=== PATIENT | male | born 1980 | race Asian ===

== ENCOUNTER 2017-12-24 11:21 | Outpatient (CLI) | payer OTHER | END 2017-12-24 11:22 | disposition home or self-care (01) | LOC: SC 11:21 | PROVIDERS: ATTEND Internal Medicine Pulmonary Disease | DX: G47.33 Obstructive sleep apnea (adult) (pediatric) (principal) | CPT/HCPCS: 99203; 99212 ==

== ENCOUNTER 2018-02-09 19:14 | Outpatient (CLI) | payer OTHER | END 2018-02-09 19:15 | disposition home or self-care (01) | LOC: SC 19:14 | PROVIDERS: ATTEND Internal Medicine Pulmonary Disease | DX: G47.33 Obstructive sleep apnea (adult) (pediatric) (principal); G47.61 Periodic limb movement disorder | CPT/HCPCS: 95810 ==

== ENCOUNTER 2018-03-13 09:04 | Outpatient (CLI) | payer OTHER | END 2018-03-13 09:05 | disposition home or self-care (01) | LOC: SC 09:04 | PROVIDERS: ATTEND Nurse Practitioner Family | DX: G47.33 Obstructive sleep apnea (adult) (pediatric) (principal) | CPT/HCPCS: 99212; 99214 ==

== ENCOUNTER 2019-05-13 09:06 | Outpatient (CLI) | payer OTHER | END 2019-05-13 09:07 | disposition home or self-care (01) | LOC: SC 09:06 | PROVIDERS: ATTEND Nurse Practitioner Family | DX: G47.33 Obstructive sleep apnea (adult) (pediatric) (principal) | CPT/HCPCS: 99212; 99215 ==

== ENCOUNTER 2019-06-05 20:10 | Outpatient (CLI) | payer OTHER | END 2019-06-05 20:11 | disposition home or self-care (01) | LOC: SC 20:10 | PROVIDERS: ATTEND Internal Medicine Pulmonary Disease | DX: G47.33 Obstructive sleep apnea (adult) (pediatric) (principal); G47.61 Periodic limb movement disorder | CPT/HCPCS: 95810 ==

== ENCOUNTER 2019-12-25 18:54 | Outpatient (CLI) | payer OTHER | END 2019-12-25 18:55 | disposition EMS.NT | LOC: EMS 18:54 | PROVIDERS: ATTEND Surgery | DX: K92.1 Melena (principal) ==

== ENCOUNTER 2019-12-25 19:49 | Emergency (ER) | payer OTHER ==
[2019-12-25] MEDS ORDERED: LORazepam 2 MG/ML VIAL IVP STA (20:09)
[2019-12-25] MEDS ORDERED: FOLIC ACID INJ 1 MG, THIAMINE INJ 100 MG, MAGNESIUM SULFATE 2 GM, MULTIVITAMIN 10 ML in... IV STA ×5 (20:16)
[2019-12-25 20:26] LABS: BASOPHILS # (AUTO) 0.1 10^3/uL (0.0-0.1); BASOPHILS % (AUTO) 0.7 %; EOSINOPHILS # (AUTO) 0.3 10^3/uL (0.0-0.7); EOSINOPHILS % (AUTO) 2.3 %; HGB - HEMOGLOBIN 13.1 g/dL (14.0-18.0); LYMPHOCYTES # (AUTO) 3.2 10^3/uL (1.5-3.5); LYMPHOCYTES % (AUTO) 24.3 %; MEAN CORPUSCULAR HEMOGLOBIN 29.7 pg (27.0-31.0); MEAN CORPUSCULAR HGB CONC 34.5 g/dL (32.0-36.0); MEAN CORPUSCULAR VOLUME 86.2 fL (80.0-94.0); MEAN PLATELET VOLUME 9.6 fL (7.4-11.4); MONOCYTES # (AUTO) 1.6 10^3/uL (0.0-1.0); MONOCYTES % (AUTO) 12.1 %; NEUTROPHILS # (AUTO) 7.9 10^3/uL (1.5-6.6); NEUTROPHILS % (AUTO) 60.1 %; PLT - PLATELET COUNT 189 10^3/uL (130-450); RED BLOOD COUNT 4.41 10^6/uL (4.70-6.10); RED CELL DISTRIBUTION WIDTH 16.7 % (12.0-15.0); WHITE BLOOD COUNT 13.1 x10^3/uL (4.8-10.8)
[2019-12-25] MEDS ORDERED: LORazepam 2 MG/ML VIAL ONE (20:28)
[2019-12-25 20:31] LABS: INR 1.5 (0.8-1.2); PT - PROTHROMBIN TIME 16.7 secs (9.9-12.6)
[2019-12-25 20:38] LABS: PARTIAL THROMBOPLASTIN TIME 42.3 secs (24.9-33.3)
[2019-12-25 20:44] LABS: ACETAMINOPHEN < 10 ug/mL (10-30); ALBUMIN 3.3 g/dL (3.2-5.5); ALBUMIN/GLOBULIN RATIO 0.9 (1.0-2.2); ALKALINE PHOSPHATASE 149 IU/L (42-121); ALT ALANINE AMINOTRANSFERASE 60 IU/L (10-60); AST ASPARTATE AMINOTRANSFERASE 108 IU/L (10-42); BILIRUBIN,DIRECT 1.1 mg/dL (0.1-0.5); BILIRUBIN,TOTAL 2.4 mg/dL (0.2-1.0); BUN - BLOOD UREA NITROGEN 6 mg/dL (6-20); CALCIUM 8.1 mg/dL (8.5-10.3); CARBON DIOXIDE - CO2 30 mmol/L (21-32); CHLORIDE 99 mmol/L (101-111); CREATININE 0.8 mg/dL (0.6-1.2); GFR - MDRD 108 (>89); GLUCOSE 121 mg/dL (70-100); LIPASE 127 U/L (22-51); MAGNESIUM 2.1 mg/dL (1.7-2.8); PHOSPHORUS 3.9 mg/dL (2.5-4.6); SALICYLATE < 6.0 mg/dL; SODIUM 141 mmol/L (135-145); TOTAL PROTEIN 7.1 g/dL (6.7-8.2)
[2019-12-25 20:48] LABS: CK- CREATINE KINASE 1079 IU/L (22-269)
[2019-12-25] MEDS ORDERED: SODIUM CHLORIDE 0.9% 1,000 ML IV ONE (20:51)
[2019-12-25] MEDS ORDERED: PANTOPRAZOLE 40 MG VIAL IV STA (20:54)
[2019-12-25] MEDS ORDERED: THIAMINE 100 MG/1 ML 2 ML MDV ONE (20:55)
--- NOTE | 2019-12-25 21:49 | ED Physician Documentation ---
History of Present Illness - Stated complaint Stated Complaint: HBD - Chief complaint Chief Complaint: Abd Pain - History obtained from History obtained from: Patient, Family (the history is primarily obtained from the patient's . the patient is a 39 Y/O M who is currently being separted from the [facility] for alcohol abuse. The reports he has been drinking 4 LOKOs daily for the last 3 days and noticed that he had some blood in the toilet tonight and had the patient brought in by ems. the denies any toxic alcohol ingestion or coingestions.), EMS Review of Systems Unable to obtain: Intoxicated PD PAST MEDICAL HISTORY - Past Medical History Past Medical History: Yes Cardiovascular: Hypertension GI: Cirrhosis - Past Surgical History Past Surgical History: No - Present Medications Home Medications: Ambulatory Orders Medication Instructions Recorded Confirmed Disulfiram [Antabuse] 250 mg PO 12/25/19 FLUoxetine [PROzac] 20 mg PO DAILY 12/25/19 12/25/19 Losartan Potassium 25 mg PO 12/25/19 Naltrexone HCl 50 mg PO 12/25/19 - Allergies Allergies/Adverse Reactions: Allergies Allergy/AdvReac Type Severity Reaction Status Date / Time No Known Drug Allergies Allergy Verified 12/25/19 20:24 - Social History Does the pt smoke?: Yes Smoking Status: Current every day smoker Does the pt drink ETOH?: Yes ETOH Use: Beer Does the pt have substance abuse?: No - POLST Patient has POLST: No PD ED PE NORMAL - Vitals Vital signs reviewed: Yes - General General: No acute distress, Well developed/nourished, Other (intoxicated, smells of alcohol, protecting airway.) - HEENT HEENT: PERRL, EOMI, Ears normal, Moist mucous membranes, Pharynx benign, Other (small 2x2 cm hematoma to the left parietal region) - Neck Neck: Supple, no meningeal sign, No JVD, No bruit - Cardiac Cardiac: RRR, No murmur, Strong equal pulses - Respiratory Respiratory: No respiratory distress, Clear bilaterally - Abdomen Abdomen: Normal bowel sounds, Soft, Non tender, Non distended, Other (no midline abd pulsatile mass) - Rectal Rectal: Other (no gross blood on exam, hemoccult pending) - Derm Derm: Normal color, Warm and dry, No rash - Extremities Extremities: No deformity - Neuro Neuro: Other (clinically intoxicated, no facial droop, no unilateral weakness) - Psych Psych: Normal mood, Normal affect Results - Vitals Vitals: Vital Signs - 24 hr 12/25/19 12/25/19 12/25/19 19:54 20:49 21:31 Temperature 36.8 C Heart Rate 95 77 Respiratory 20 14 Rate Blood Pressure 149/94 H 157/90 H O2 Saturation 99 89 L 99 12/25/19 12/26/19 12/26/19 23:00 00:00 01:17 Temperature Heart Rate 96 94 92 Respiratory 16 14 14 Rate Blood Pressure 126/82 H 137/85 H 142/89 H O2 Saturation 94 98 96 12/26/19 12/26/19 12/26/19 02:44 04:00 05:00 Temperature Heart Rate 94 73 75 Respiratory 14 14 16 Rate Blood Pressure 132/80 H 140/96 H 167/99 H O2 Saturation 96 99 96 Oxygen O2 Source Nasal cannula - Labs Labs: Laboratory Tests 12/25/19 12/25/19 12/25/19 20:18 20:18 20:18 WBC 13.1 H RBC 4.41 L Hgb 13.1 L Hct 38.0 L MCV 86.2 MCH 29.7 MCHC 34.5 RDW 16.7 H Plt Count 189 MPV 9.6 Neut # (Auto) 7.9 H Lymph # (Auto) 3.2 [place] # (Auto) 1.6 H Eos # (Auto) 0.3 Baso # (Auto) 0.1 Absolute Nucleated RBC 0.00 Nucleated RBC % 0.0 PT 16.7 H INR 1.5 H APTT 42.3 H Sodium 141 Potassium 2.9 L Chloride 99 L Carbon Dioxide 30 Anion Gap 12.0 BUN 6 Creatinine 0.8 Estimated GFR (MDRD) 108 Glucose 121 H Calcium 8.1 L Phosphorus 3.9 Magnesium 2.1 Total Bilirubin 2.4 H Direct Bilirubin 1.1 H AST 108 H ALT 60 Alkaline Phosphatase 149 H Ammonia Total Creatine Kinase 1079 H* Total Protein 7.1 Albumin 3.3 Globulin 3.8 Albumin/Globulin Ratio 0.9 L Lipase 127 H TSH Urine Color Urine Clarity Urine pH Ur Specific [place] Urine Protein Urine Glucose (UA) Urine Ketones Urine Occult Blood Urine Nitrite Urine Bilirubin Urine Urobilinogen Ur Leukocyte Esterase Ur Microscopic Review Urine Culture Comments Salicylates < 6.0 Urine Opiates Screen Ur Oxycodone Screen Urine Methadone Screen Ur Propoxyphene Screen Acetaminophen < 10 L Ur Barbiturates Screen Ur Tricyclics Screen Ur Phencyclidine Scrn Ur Amphetamine Screen U Methamphetamines Scrn U Benzodiazepines Scrn Urine Cocaine Screen U Cannabinoids Screen Ethyl Alcohol 320.9 12/25/19 12/25/19 12/26/19 20:18 20:27 01:10 WBC RBC Hgb Hct MCV MCH MCHC RDW Plt Count MPV Neut # (Auto) Lymph # (Auto) [place] # (Auto) Eos # (Auto) Baso # (Auto) Absolute Nucleated RBC Nucleated RBC % PT INR APTT Sodium Potassium Chloride Carbon Dioxide Anion Gap BUN Creatinine Estimated GFR (MDRD) Glucose Calcium Phosphorus Magnesium Total Bilirubin Direct Bilirubin AST ALT Alkaline Phosphatase Ammonia 45.5 H Total Creatine Kinase Total Protein Albumin Globulin Albumin/Globulin Ratio Lipase TSH 1.91 Urine Color YELLOW Urine Clarity CLEAR Urine pH 6.0 Ur Specific [place] 1.010 Urine Protein NEGATIVE Urine Glucose (UA) NEGATIVE Urine Ketones NEGATIVE Urine Occult Blood NEGATIVE Urine Nitrite NEGATIVE Urine Bilirubin NEGATIVE Urine Urobilinogen 1 (NORMAL) Ur Leukocyte Esterase NEGATIVE Ur Microscopic Review NOT INDICATED Urine Culture Comments NOT INDICATED Salicylates Urine Opiates Screen NEGATIVE Ur Oxycodone Screen NEGATIVE Urine Methadone Screen NEGATIVE Ur Propoxyphene Screen NEGATIVE Acetaminophen Ur Barbiturates Screen NEGATIVE Ur Tricyclics Screen NEGATIVE Ur Phencyclidine Scrn NEGATIVE Ur Amphetamine Screen NEGATIVE U Methamphetamines Scrn NEGATIVE U Benzodiazepines Scrn POSITIVE H Urine Cocaine Screen NEGATIVE U Cannabinoids Screen NEGATIVE Ethyl Alcohol PD MEDICAL DECISION MAKING - ED course Complexity details: re-evaluated patient (05:26 patient with steady gait, clear speech, tolerated po challenge, awake,alert,oriented. ), d/w family (had a lengthy discussion with the patient's regarding plan for the patient. will contact the patient's correctional case records supervisor to schedule outpatient follow up. If patient returns a potential option would be to stabilize and transfer to [facility] for inpatient detox. ), other (hx and exam are consistent with alcohol intoxication, unsure if patient fell and hit his head, will get CTH to rule out IC injury. thiamine and folate to be replaced.) - Consults Consults: Discussed case with (hospitalist. Keep in ER and dc home when sober. ) Departure - Departure Disposition: 01 Home, Self Care Clinical Impression: Hypokalemia, Elevated CK, ETOH abuse Alcohol intoxication Qualifiers: Complication of substance-induced condition: with unspecified complication Qualified Code(s): F10.929 - Alcohol use, unspecified with intoxication, unspecified Condition: Fair Instructions: ED Alcohol Intoxication Follow-Up: OMAR BRYAN MD [Primary Care Provider] - 12/26/19 Comments: follow up at [facility] yassine or your PCP today.
--- NOTE | 2019-12-25 22:00 | CT Report ---
Reason: AMS Procedure Date: 12/25/2019 Accession Number: [id number] / [id number] Procedure: CT - HEAD WO CPT Code: Final Report FULL RESULT: EXAM: CT HEAD EXAM DATE: 12/25/2019 09:16 PM. CLINICAL HISTORY: Altered mental status. Has been drinking for the past 3 days. Bloody stool. COMPARISON: None. TECHNIQUE: Multiaxial CT images were obtained from the foramen magnum to the vertex. Reformats: Sagittal and coronal. IV contrast: None. In accordance with CT protocol optimization, one or more of the following dose reduction techniques were utilized for this exam: automated exposure control, adjustment of mA and/or KV based on patient size, or use of iterative reconstructive technique. FINDINGS: Parenchyma: No mass-effect or midline shift. No evidence for edema. No evidence for acute intracranial hemorrhage. Extraaxial Spaces: Normal for age. No subdural or epidural collections identified. Ventricles: Normal in size and position. Sinuses and Orbits: Imaged paranasal sinuses, orbits, and mastoids show no significant abnormality. Bones: No evidence of fracture or calvarial defect. IMPRESSION: No acute or focal intracranial abnormality seen. RADIA
[2019-12-25] MEDS ORDERED: POTASSIUM CHLOR 20 MEQ/100 ML 20 MEQ/100 ML BAG IV ONE (23:36)
[2019-12-26] MEDS ORDERED: LORazepam 2 MG/ML VIAL IVP STA (01:11)
[2019-12-26 01:19] LABS: MUDS CUTOFF CONCENTRATIONS CUTOFF CONC BELOW:
[2019-12-26 01:20] LABS: BILIRUBIN,URINE NEGATIVE (NEGATIVE); GLUCOSE, URINE (UA) NEGATIVE (NEGATIVE); KETONES,URINE (UA) NEGATIVE (NEGATIVE); LEUKOCYTE ESTERASE, URINE NEGATIVE (NEGATIVE); NITRITE,URINE NEGATIVE (NEGATIVE); OCCULT BLOOD,URINE NEGATIVE (NEGATIVE); PROTEIN,URINE NEGATIVE (NEGATIVE); UROBILINOGEN,URINE 1 (NORMAL) E.U./dL (NORMAL)
[2019-12-26 01:21] LABS: CLARITY,URINE CLEAR (CLEAR)
[2019-12-26 01:30] LABS: AMPHETAMINE SCREEN,URINE NEGATIVE (NEGATIVE); BENZODIAZEPINES SCREEN, URINE POSITIVE (NEGATIVE); COCAINE SCREEN URINE NEGATIVE (NEGATIVE); METHADONE SCREEN, URINE NEGATIVE (NEGATIVE); METHAMPHETAMINES SCREEN, URINE NEGATIVE (NEGATIVE); OPIATE SCREEN, URINE NEGATIVE (NEGATIVE); OXYCODONE SCREEN, URINE NEGATIVE (NEGATIVE); PROPOXYPHENE SCREEN, URINE NEGATIVE (NEGATIVE); TRICYCLIC ANTIDEPRESSANT,URINE NEGATIVE (NEGATIVE)
[2019-12-26 05:09] VITALS: BP 167/99
== END 2019-12-26 05:39 | disposition home or self-care (01) ==
LOC: EDUNIT# → ED 19:49
DX: F10.129 Alcohol abuse with intoxication, unspecified (principal); E87.6 Hypokalemia; R74.8 Abnormal levels of other serum enzymes; S00.03XA Contusion of scalp, initial encounter; X58.XXXA Exposure to other specified factors, initial encounter; I10 Essential (primary) hypertension; K74.60 Unspecified cirrhosis of liver; F17.200 Nicotine dependence, unspecified, uncomplicated
CPT/HCPCS: 36415; 70450; 80076; 80320; 80329; 81003; 82140; 82550; 83690; 83735; 84100; 85610; 85730; 96365; 96366; 96368; 96375; 96376; 99281; 99285; J2060; J3411; 80053; 80306; 80307; 81001; 84443; 85025; 87086

== ENCOUNTER 2019-12-26 08:51 | Emergency (ER) | payer OTHER ==
[2019-12-26] MEDS ORDERED: SODIUM CHLORIDE 0.9% 1,000 ML IV ONE ×2 (09:00)
--- NOTE | 2019-12-26 09:03 | ED Physician Documentation ---
History of Present Illness - Stated complaint Stated Complaint: SI - History obtained from History obtained from: Patient, EMS - History of Present Illness Timing: Today Pain level max: 0 Pain level now: 0 - Additonal information Additional information: 39-year-old male presents to the emergency department stating that he feels hopeless. He has issues with alcohol and is currently being from the [facility] for this. He was seen here last night for alcohol intoxication. His took him home this morning. When they arrived home, he started talking about how his and his children would be better off without him. The feels that he was suicidal and called 911. The patient states that he is not suicidal, but is helpless. He does see psychiatry on the [facility] base. He states that approximately 3 months ago he did attempt suicide with Flexeril and Seroquel, attempted an overdose. He states he does not currently feel suicidal. Nothing makes it better or worse Review of Systems Ten Systems: 10 systems reviewed and negative Constitutional: denies: Fever, Chills Throat: denies: Sore throat Cardiac: denies: Chest pain / pressure Respiratory: denies: Cough GI: denies: Abdominal Pain, Nausea, Vomiting, Diarrhea : denies: Dysuria Skin: denies: Rash Musculoskeletal: denies: Neck pain, Back pain Neurologic: denies: Headache Psychiatric: reports: Depressed. denies: Homicidal, Hallucinations, Delusions, Anxiety, Insomnia PD PAST MEDICAL HISTORY - Past Medical History Past Medical History: Yes Cardiovascular: Hypertension GI: Cirrhosis - Past Surgical History Past Surgical History: No - Present Medications Home Medications: Ambulatory Orders Medication Instructions Recorded Confirmed Disulfiram [Antabuse] 250 mg PO 12/25/19 FLUoxetine [PROzac] 20 mg PO DAILY 12/25/19 12/25/19 Losartan Potassium 25 mg PO 12/25/19 Naltrexone HCl 50 mg PO 12/25/19 - Allergies Allergies/Adverse Reactions: Allergies Allergy/AdvReac Type Severity Reaction Status Date / Time No Known Drug Allergies Allergy Verified 12/26/19 09:03 - Social History Does the pt smoke?: Yes Smoking Status: Current every day smoker Does the pt drink ETOH?: Yes Does the pt have substance abuse?: No - POLST Patient has POLST: No PD ED PE NORMAL - Vitals Vital signs reviewed: Yes - General General: Alert and oriented X 3, No acute distress, Well developed/nourished - HEENT HEENT: PERRL, Moist mucous membranes - Neck Neck: Supple, no meningeal sign - Cardiac Cardiac: RRR, Strong equal pulses - Respiratory Respiratory: No respiratory distress, Clear bilaterally - Abdomen Abdomen: Soft, Non tender, Non distended - Derm Derm: Warm and dry, No rash - Extremities Extremities: No edema, No calf tenderness / cord - Neuro Neuro: Alert and oriented X 3 - Psych Psych: Normal mood, Normal affect Results - Vitals Vitals: Vital Signs - 24 hr 12/26/19 12/26/19 08:55 12:55 Temperature 36.9 C Heart Rate 101 H 99 Respiratory 20 18 Rate Blood Pressure 146/93 H 165/105 H O2 Saturation 97 96 Oxygen O2 Source Room air - EKG (time done) 0907 Rate: Rate (enter#) (91) Rhythm: NSR [place]: Normal Intervals: Normal CO, Prolonged QT (485) QRS: Normal Ischemia: Normal ST segments - Labs Labs: Laboratory Tests 12/26/19 12/26/19 12/26/19 09:05 09:05 09:05 WBC 8.5 RBC 4.43 L Hgb 13.0 L Hct 38.7 L MCV 87.4 MCH 29.3 MCHC 33.6 RDW 16.8 H Plt Count 167 MPV 9.5 Neut # (Auto) 5.1 Lymph # (Auto) 2.0 [place] # (Auto) 1.1 H Eos # (Auto) 0.2 Baso # (Auto) 0.1 Absolute Nucleated RBC 0.00 Nucleated RBC % 0.0 Sodium 143 Potassium 3.3 L Chloride 104 Carbon Dioxide 27 Anion Gap 12.0 BUN 7 Creatinine 0.7 Estimated GFR (MDRD) 126 Glucose 169 H Calcium 8.1 L Total Bilirubin 3.6 H AST 111 H ALT 59 Alkaline Phosphatase 128 H Total Creatine Kinase 1051 H* Total Protein 6.7 Albumin 3.3 Globulin 3.4 Albumin/Globulin Ratio 1.0 Lipase 99 H TSH 1.37 Urine Color Urine Clarity Urine pH Ur Specific [place] Urine Protein Urine Glucose (UA) Urine Ketones Urine Occult Blood Urine Nitrite Urine Bilirubin Urine Urobilinogen Ur Leukocyte Esterase Ur Microscopic Review Urine Culture Comments Salicylates < 6.0 Urine Opiates Screen Ur Oxycodone Screen Urine Methadone Screen Ur Propoxyphene Screen Acetaminophen < 10 L Ur Barbiturates Screen Ur Tricyclics Screen Ur Phencyclidine Scrn Ur Amphetamine Screen U Methamphetamines Scrn U Benzodiazepines Scrn Urine Cocaine Screen U Cannabinoids Screen Ethyl Alcohol 184.7 12/26/19 12/26/19 12/26/19 11:45 12:51 15:59 WBC RBC Hgb Hct MCV MCH MCHC RDW Plt Count MPV Neut # (Auto) Lymph # (Auto) [place] # (Auto) Eos # (Auto) Baso # (Auto) Absolute Nucleated RBC Nucleated RBC % Sodium Potassium Chloride Carbon Dioxide Anion Gap BUN Creatinine Estimated GFR (MDRD) Glucose Calcium Total Bilirubin AST ALT Alkaline Phosphatase Total Creatine Kinase Total Protein Albumin Globulin Albumin/Globulin Ratio Lipase TSH Urine Color DARK YELLOW Urine Clarity CLEAR Urine pH 6.0 Ur Specific [place] 1.025 Urine Protein NEGATIVE Urine Glucose (UA) NEGATIVE Urine Ketones NEGATIVE Urine Occult Blood NEGATIVE Urine Nitrite NEGATIVE Urine Bilirubin SMALL H Urine Urobilinogen 4 H Ur Leukocyte Esterase NEGATIVE Ur Microscopic Review NOT INDICATED Urine Culture Comments NOT INDICATED Salicylates Urine Opiates Screen NEGATIVE Ur Oxycodone Screen NEGATIVE Urine Methadone Screen NEGATIVE Ur Propoxyphene Screen NEGATIVE Acetaminophen Ur Barbiturates Screen NEGATIVE Ur Tricyclics Screen NEGATIVE Ur Phencyclidine Scrn NEGATIVE Ur Amphetamine Screen NEGATIVE U Methamphetamines Scrn NEGATIVE U Benzodiazepines Scrn POSITIVE H Urine Cocaine Screen NEGATIVE U Cannabinoids Screen NEGATIVE Ethyl Alcohol 134.8 108.3 12/26/19 17:41 WBC RBC Hgb Hct MCV MCH MCHC RDW Plt Count MPV Neut # (Auto) Lymph # (Auto) [place] # (Auto) Eos # (Auto) Baso # (Auto) Absolute Nucleated RBC Nucleated RBC % Sodium Potassium Chloride Carbon Dioxide Anion Gap BUN Creatinine Estimated GFR (MDRD) Glucose Calcium Total Bilirubin AST ALT Alkaline Phosphatase Total Creatine Kinase Total Protein Albumin Globulin Albumin/Globulin Ratio Lipase TSH Urine Color Urine Clarity Urine pH Ur Specific [place] Urine Protein Urine Glucose (UA) Urine Ketones Urine Occult Blood Urine Nitrite Urine Bilirubin Urine Urobilinogen Ur Leukocyte Esterase Ur Microscopic Review Urine Culture Comments Salicylates Urine Opiates Screen Ur Oxycodone Screen Urine Methadone Screen Ur Propoxyphene Screen Acetaminophen Ur Barbiturates Screen Ur Tricyclics Screen Ur Phencyclidine Scrn Ur Amphetamine Screen U Methamphetamines Scrn U Benzodiazepines Scrn Urine Cocaine Screen U Cannabinoids Screen Ethyl Alcohol 93.1 PD MEDICAL DECISION MAKING - ED course Complexity details: reviewed results, re-evaluated patient, considered differential, d/w patient ED course: The CK is stable from last night's elevation. Given IV fluids. He also has a mild what appears to be alcoholic hepatitis. Patient needs a detox from alcohol as well as mental health help for his alcoholism and suicidal ideation. Social work consulted. Patient would benefit from inpatient psychiatric care. [facility] was contacted for possible bed. Clinicals were faxed. Patient signed out to the oncoming emergency department physician Departure - Departure Clinical Impression: ETOH abuse, Elevated CK, Suicidal ideation Alcohol intoxication Qualifiers: Complication of substance-induced condition: uncomplicated Qualified Code(s): F10.920 - Alcohol use, unspecified with intoxication, uncomplicated Condition: Stable
[2019-12-26 09:14] LABS: BASOPHILS # (AUTO) 0.1 10^3/uL (0.0-0.1); BASOPHILS % (AUTO) 1.1 %; EOSINOPHILS # (AUTO) 0.2 10^3/uL (0.0-0.7); EOSINOPHILS % (AUTO) 2.4 %; LYMPHOCYTES % (AUTO) 23.4 %; MEAN CORPUSCULAR HEMOGLOBIN 29.3 pg (27.0-31.0); MEAN CORPUSCULAR HGB CONC 33.6 g/dL (32.0-36.0); MEAN CORPUSCULAR VOLUME 87.4 fL (80.0-94.0); MEAN PLATELET VOLUME 9.5 fL (7.4-11.4); MONOCYTES # (AUTO) 1.1 10^3/uL (0.0-1.0); MONOCYTES % (AUTO) 12.4 %; NEUTROPHILS # (AUTO) 5.1 10^3/uL (1.5-6.6); NEUTROPHILS % (AUTO) 60.3 %; PLT - PLATELET COUNT 167 10^3/uL (130-450); RED BLOOD COUNT 4.43 10^6/uL (4.70-6.10); RED CELL DISTRIBUTION WIDTH 16.8 % (12.0-15.0); WHITE BLOOD COUNT 8.5 x10^3/uL (4.8-10.8)
[2019-12-26 09:37] LABS: ACETAMINOPHEN < 10 ug/mL (10-30); ALBUMIN 3.3 g/dL (3.2-5.5); ALKALINE PHOSPHATASE 128 IU/L (42-121); ALT ALANINE AMINOTRANSFERASE 59 IU/L (10-60); AST ASPARTATE AMINOTRANSFERASE 111 IU/L (10-42); BILIRUBIN,TOTAL 3.6 mg/dL (0.2-1.0); BUN - BLOOD UREA NITROGEN 7 mg/dL (6-20); CALCIUM 8.1 mg/dL (8.5-10.3); CARBON DIOXIDE - CO2 27 mmol/L (21-32); CHLORIDE 104 mmol/L (101-111); CREATININE 0.7 mg/dL (0.6-1.2); GFR - MDRD 126 (>89); GLUCOSE 169 mg/dL (70-100); LIPASE 99 U/L (22-51); SALICYLATE < 6.0 mg/dL; SODIUM 143 mmol/L (135-145); TOTAL PROTEIN 6.7 g/dL (6.7-8.2)
[2019-12-26 09:38] LABS: CK- CREATINE KINASE 1051 IU/L (22-269)
[2019-12-26 11:47] LABS: MUDS CUTOFF CONCENTRATIONS CUTOFF CONC BELOW:
[2019-12-26 11:51] LABS: GLUCOSE, URINE (UA) NEGATIVE (NEGATIVE); KETONES,URINE (UA) NEGATIVE (NEGATIVE); LEUKOCYTE ESTERASE, URINE NEGATIVE (NEGATIVE); NITRITE,URINE NEGATIVE (NEGATIVE); OCCULT BLOOD,URINE NEGATIVE (NEGATIVE); PROTEIN,URINE NEGATIVE (NEGATIVE); UROBILINOGEN,URINE 4 E.U./dL (NORMAL)
[2019-12-26 11:55] LABS: BILIRUBIN,URINE SMALL (NEGATIVE); CLARITY,URINE CLEAR (CLEAR); ICTOTEST,URINE POSITIVE
[2019-12-26 12:01] LABS: AMPHETAMINE SCREEN,URINE NEGATIVE (NEGATIVE); BENZODIAZEPINES SCREEN, URINE POSITIVE (NEGATIVE); COCAINE SCREEN URINE NEGATIVE (NEGATIVE); METHADONE SCREEN, URINE NEGATIVE (NEGATIVE); METHAMPHETAMINES SCREEN, URINE NEGATIVE (NEGATIVE); OPIATE SCREEN, URINE NEGATIVE (NEGATIVE); OXYCODONE SCREEN, URINE NEGATIVE (NEGATIVE); PROPOXYPHENE SCREEN, URINE NEGATIVE (NEGATIVE); TRICYCLIC ANTIDEPRESSANT,URINE NEGATIVE (NEGATIVE)
--- NOTE | 2019-12-26 20:26 | ED Physician Documentation ---
ED Addendum - Addendum Addendum: 12/26/19 20:24 39-year-old gentleman signed out to me from Dr. Mensah, briefly he is an alcoholic. He is been in long-term rehab twice, most recently a couple of months ago and he was sober for 61 days. However he is been on a chandra lately. 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 At the time of my evaluation he is sober and cogent. Mildly jaundiced. He has no specific complaints. I do think he would benefit from inpatient treatment, and evidently the social workers felt that too. No bed was available for him at [facility]. [facility] pending social work evaluation in the morning for further efforts at placement tomorrow. 12/27/19 16:46 Social work involved again today. Arrange for placement at [place]. He was doing okay, seemed in good spirits and walking around the department without distress.
[2019-12-26] MEDS ORDERED: LORazepam 1 MG TABLET PO STA (20:57)
--- NOTE | 2019-12-27 15:07 | ED Physician Documentation ---
ED Addendum - Addendum Addendum: 12/27/19 15:06 Patient accepted to [facility] by Dr. Mckeon. COBRA forms filled out. Patient transferred Patient will be transferred private auto by his [place] command. They will have him placed in the backseat, restrained with a seatbelt and a guard next to him. They do understand the risks of going private auto and the patient and the [place] command accept these risks Departure - Departure Disposition: [facility] Hosp/Unit DC/Xfer Clinical Impression: ETOH abuse, Elevated CK, Suicidal ideation Alcohol intoxication Qualifiers: Complication of substance-induced condition: uncomplicated Qualified Code(s): F10.920 - Alcohol use, unspecified with intoxication, uncomplicated Condition: Stable
[2019-12-27 18:21] VITALS: BP 162/107
== END 2019-12-27 18:56 ==
LOC: EDUNIT# → ED 08:51
DX: R45.851 Suicidal ideations (principal); F10.220 Alcohol dependence with intoxication, uncomplicated; R74.8 Abnormal levels of other serum enzymes; I10 Essential (primary) hypertension; R58 Hemorrhage, not elsewhere classified; F17.200 Nicotine dependence, unspecified, uncomplicated; Z75.1 Person awaiting admission to adequate facility elsewhere
CPT/HCPCS: 36415; 70450; 80076; 80320; 80329; 81003; 82140; 82550; 83690; 83735; 84100; 85610; 85730; 93005; 96360; 96361; 96365; 96366; 96368; 96375; 96376; 99281; 99284; 99285; J2060; J3411; J8499; 80053; 80306; 80307; 81001; 84443; 85025; 87086

== ENCOUNTER 2020-02-14 01:17 | Emergency (ER) | payer OTHER ==
--- NOTE | 2020-02-14 02:10 | ED Physician Documentation ---
History of Present Illness - Stated complaint Stated Complaint: ETOH, SI - Chief complaint Chief Complaint: MHE - History obtained from History obtained from: Patient, EMS - History of Present Illness Timing: Today - Additonal information Additional information: BIBA. Per medic report, patient texted to his suicidal threats (threatened to overdose on pills). Patient admits that he is an alcoholic. He says his left him 2 days ago because of his alcoholism. He is angry during my HPI and repeatedly demands to leave. Review of Systems Unable to obtain: Uncooperative PD PAST MEDICAL HISTORY - Past Medical History Past Medical History: Yes Cardiovascular: Hypertension GI: Cirrhosis Psych: Depression - Past Surgical History Past Surgical History: No - Present Medications Home Medications: Ambulatory Orders Medication Instructions Recorded Confirmed Disulfiram [Antabuse] 250 mg PO DAILY 12/25/19 12/27/19 FLUoxetine [PROzac] 20 mg PO DAILY 12/25/19 12/27/19 Losartan Potassium 25 mg PO DAILY 12/25/19 12/27/19 Naltrexone HCl 50 mg PO DAILY 12/25/19 12/27/19 - Allergies Allergies/Adverse Reactions: Allergies Allergy/AdvReac Type Severity Reaction Status Date / Time No Known Drug Allergies Allergy Verified 12/26/19 09:03 - Social History Does the pt smoke?: Yes Smoking Status: Current every day smoker Does the pt drink ETOH?: Yes Does the pt have substance abuse?: No - Immunizations Immunizations are current?: Yes - POLST Patient has POLST: No PD ED PE NORMAL - Vitals Vital signs reviewed: Yes - General General: Alert and oriented X 3, No acute distress, Well developed/nourished - HEENT HEENT: Moist mucous membranes - Neck Neck: Supple, no meningeal sign - Cardiac Cardiac: RRR, No murmur - Respiratory Respiratory: No respiratory distress, Clear bilaterally - Abdomen Abdomen: Soft, Non tender - Derm Derm: Normal color, Warm and dry - Extremities Extremities: No edema PD ED PE EXPANDED - Eyes Eyes: Scleral icterus Results - Vitals Vitals: Vital Signs - 24 hr 02/14/20 02/14/20 01:23 10:10 Temperature 36.9 C 36.6 C Heart Rate 84 65 Respiratory 16 16 Rate Blood Pressure 137/82 H 135/68 H O2 Saturation 97 99 Oxygen O2 Source Room air - Labs Labs: Laboratory Tests 04/03/0102/14/20 02/14/20 02:04 02:04 03:57 WBC RBC Hgb Hct MCV MCH MCHC RDW Plt Count MPV Neut # (Auto) Lymph # (Auto) [place] # (Auto) Eos # (Auto) Baso # (Auto) Absolute Nucleated RBC Nucleated RBC % Sodium 140 Potassium 2.9 L Chloride 103 Carbon Dioxide 26 Anion Gap 11.0 BUN 6 Creatinine 0.7 Estimated GFR (MDRD) 126 Glucose 113 H Calcium 7.9 L Total Bilirubin 3.1 H AST 136 H ALT 73 H Alkaline Phosphatase 115 Total Protein 6.8 Albumin 3.6 Globulin 3.2 Albumin/Globulin Ratio 1.1 Lipase 77 H Urine Color ORANGE Urine Clarity CLEAR Urine pH 6.0 Ur Specific [place] 1.025 Urine Protein TRACE Urine Glucose (UA) NEGATIVE Urine Ketones NEGATIVE Urine Occult Blood TRACE-INTA Urine Nitrite NEGATIVE Urine Bilirubin NEGATIVE Urine Urobilinogen 0.2 (NORMAL) Ur Leukocyte Esterase NEGATIVE Ur Microscopic Review NOT INDICATED Urine Culture Comments NOT INDICATED Salicylates < 6.0 Urine Opiates Screen NEGATIVE Ur Oxycodone Screen NEGATIVE Urine Methadone Screen NEGATIVE Ur Propoxyphene Screen NEGATIVE Acetaminophen < 10 L Ur Barbiturates Screen NEGATIVE Ur Tricyclics Screen NEGATIVE Ur Phencyclidine Scrn NEGATIVE Ur Amphetamine Screen NEGATIVE U Methamphetamines Scrn NEGATIVE U Benzodiazepines Scrn NEGATIVE Urine Cocaine Screen NEGATIVE U Cannabinoids Screen NEGATIVE Ethyl Alcohol 386.8 02/14/20 06:42 WBC 8.5 RBC 4.60 L Hgb 13.6 L Hct 38.8 L MCV 84.3 MCH 29.6 MCHC 35.1 RDW 17.0 H Plt Count 147 MPV 9.6 Neut # (Auto) 5.2 Lymph # (Auto) 2.2 [place] # (Auto) 0.8 Eos # (Auto) 0.1 Baso # (Auto) 0.1 Absolute Nucleated RBC 0.00 Nucleated RBC % 0.0 Sodium Potassium Chloride Carbon Dioxide Anion Gap BUN Creatinine Estimated GFR (MDRD) Glucose Calcium Total Bilirubin AST ALT Alkaline Phosphatase Total Protein Albumin Globulin Albumin/Globulin Ratio Lipase Urine Color Urine Clarity Urine pH Ur Specific [place] Urine Protein Urine Glucose (UA) Urine Ketones Urine Occult Blood Urine Nitrite Urine Bilirubin Urine Urobilinogen Ur Leukocyte Esterase Ur Microscopic Review Urine Culture Comments Salicylates Urine Opiates Screen Ur Oxycodone Screen Urine Methadone Screen Ur Propoxyphene Screen Acetaminophen Ur Barbiturates Screen Ur Tricyclics Screen Ur Phencyclidine Scrn Ur Amphetamine Screen U Methamphetamines Scrn U Benzodiazepines Scrn Urine Cocaine Screen U Cannabinoids Screen Ethyl Alcohol PD MEDICAL DECISION MAKING - ED course Complexity details: reviewed old records, reviewed results, re-evaluated patient, considered differential, d/w patient ED course: patient presented with similar problems last month and was transferred to [facility]. Patient has very high ethanol level on blood test tonight; I explained to him that he cannot leave the ED until he is able to be cleared both medically and behaviorally, and clearing him medically will entail staying in the ED until his alcohol level is low enough for reevaluation. He eventually was agreeable to stay and he was agreeable to PO ativan. Case signed out to Dr. Villela at end of my shift pending clearance. Departure - Departure Disposition: 01 Home, Self Care Clinical Impression: Suicidal ideation, Alcoholism, Liver cirrhosis, alcoholic Condition: Stable Instructions: Cirrhosis Liver Dc, ED Alcohol Abuse Follow-Up: OMAR BRYAN MD [Primary Care Provider] - Comments: No alcohol. Use the medications previously prescribed for withdrawal symptoms. Seek help for detox programs. Your liver enzymes and blood tests are already showing signs of liver injury from the alcoholism. This will only worsen with continued alcohol intake. You really need to stop drinking. Discharge Date/Time: 02/14/20 11:15
[2020-02-14] MEDS ORDERED: OLANZapine 10 MG VIAL IM STA (03:04)
[2020-02-14 03:30] LABS: ACETAMINOPHEN < 10 ug/mL (10-30); ALBUMIN 3.6 g/dL (3.2-5.5); ALBUMIN/GLOBULIN RATIO 1.1 (1.0-2.2); ALKALINE PHOSPHATASE 115 IU/L (42-121); ALT ALANINE AMINOTRANSFERASE 73 IU/L (10-60); AST ASPARTATE AMINOTRANSFERASE 136 IU/L (10-42); BILIRUBIN,TOTAL 3.1 mg/dL (0.2-1.0); BUN - BLOOD UREA NITROGEN 6 mg/dL (6-20); CALCIUM 7.9 mg/dL (8.5-10.3); CARBON DIOXIDE - CO2 26 mmol/L (21-32); CHLORIDE 103 mmol/L (101-111); CREATININE 0.7 mg/dL (0.6-1.2); GLUCOSE 113 mg/dL (70-100); LIPASE 77 U/L (22-51); SALICYLATE < 6.0 mg/dL; SODIUM 140 mmol/L (135-145); TOTAL PROTEIN 6.8 g/dL (6.7-8.2)
[2020-02-14] MEDS ORDERED: LORazepam 0.5 MG TABLET PO STA ×2 (03:39→04:03)
[2020-02-14] MEDS ORDERED: POTASSIUM CHLORIDE 20 MEQ TABLET PO STA ×2 (04:04→07:15)
[2020-02-14 04:06] LABS: MUDS CUTOFF CONCENTRATIONS CUTOFF CONC BELOW:
[2020-02-14 04:07] LABS: GLUCOSE, URINE (UA) NEGATIVE (NEGATIVE); KETONES,URINE (UA) NEGATIVE (NEGATIVE); LEUKOCYTE ESTERASE, URINE NEGATIVE (NEGATIVE); NITRITE,URINE NEGATIVE (NEGATIVE); OCCULT BLOOD,URINE TRACE-INTA (NEGATIVE); PROTEIN,URINE TRACE mg/dL (NEGATIVE); UROBILINOGEN,URINE 0.2 (NORMAL) E.U./dL (NORMAL)
[2020-02-14 04:10] LABS: BILIRUBIN,URINE NEGATIVE (NEGATIVE); CLARITY,URINE CLEAR (CLEAR); ICTOTEST,URINE NEGATIVE
[2020-02-14 04:18] LABS: AMPHETAMINE SCREEN,URINE NEGATIVE (NEGATIVE); BENZODIAZEPINES SCREEN, URINE NEGATIVE (NEGATIVE); COCAINE SCREEN URINE NEGATIVE (NEGATIVE); METHADONE SCREEN, URINE NEGATIVE (NEGATIVE); METHAMPHETAMINES SCREEN, URINE NEGATIVE (NEGATIVE); OPIATE SCREEN, URINE NEGATIVE (NEGATIVE); OXYCODONE SCREEN, URINE NEGATIVE (NEGATIVE); PROPOXYPHENE SCREEN, URINE NEGATIVE (NEGATIVE); TRICYCLIC ANTIDEPRESSANT,URINE NEGATIVE (NEGATIVE)
[2020-02-14 06:51] LABS: BASOPHILS # (AUTO) 0.1 10^3/uL (0.0-0.1); BASOPHILS % (AUTO) 0.9 %; EOSINOPHILS # (AUTO) 0.1 10^3/uL (0.0-0.7); EOSINOPHILS % (AUTO) 1.4 %; HGB - HEMOGLOBIN 13.6 g/dL (14.0-18.0); LYMPHOCYTES # (AUTO) 2.2 10^3/uL (1.5-3.5); LYMPHOCYTES % (AUTO) 26.2 %; MEAN CORPUSCULAR HEMOGLOBIN 29.6 pg (27.0-31.0); MEAN CORPUSCULAR HGB CONC 35.1 g/dL (32.0-36.0); MEAN CORPUSCULAR VOLUME 84.3 fL (80.0-94.0); MEAN PLATELET VOLUME 9.6 fL (7.4-11.4); MONOCYTES # (AUTO) 0.8 10^3/uL (0.0-1.0); MONOCYTES % (AUTO) 9.8 %; NEUTROPHILS # (AUTO) 5.2 10^3/uL (1.5-6.6); NEUTROPHILS % (AUTO) 61.5 %; PLT - PLATELET COUNT 147 10^3/uL (130-450); WHITE BLOOD COUNT 8.5 x10^3/uL (4.8-10.8)
--- NOTE | 2020-02-14 09:25 | ED Physician Documentation ---
ED Addendum - Addendum Addendum: 02/14/20 09:23 The patient seen this morning after change of shift. He is awake and alert and conversant. He wants to go to the bathroom. He is requesting is close to go home. He denies suicidal ideation at this time. He does have history of chronic alcoholism so he is quite coherent now even though his blood alcohol level is certainly still above 80. We can recheck it in a couple of hours but clinically he is quite lucid and able to talk well at this time. I put in for social work consultation to see if they would talk to him at this point for an assessment and also potential for alcohol treatment programs.
[2020-02-14] MEDS ORDERED: LORazepam 1 MG TABLET PO STA (09:38)
[2020-02-14 10:11] VITALS: BP 135/68
== END 2020-02-14 11:15 | disposition home or self-care (01) ==
LOC: EDUNIT# → ED 01:17
DX: R45.851 Suicidal ideations (principal); F10.229 Alcohol dependence with intoxication, unspecified; K70.30 Alcoholic cirrhosis of liver without ascites; I10 Essential (primary) hypertension; F17.200 Nicotine dependence, unspecified, uncomplicated
CPT/HCPCS: 36415; 80053; 80320; 80329; 81003; 83690; 85025; 99281; 99284; A9270; 80048; 80306; 80307; 81001; 87086

== ENCOUNTER 2020-02-15 15:16 | Emergency (ER) | payer OTHER ==
[2020-02-15 15:34] LABS: BASOPHILS # (AUTO) 0.1 10^3/uL (0.0-0.1); BASOPHILS % (AUTO) 0.5 %; EOSINOPHILS % (AUTO) 0.1 %; HGB - HEMOGLOBIN 13.6 g/dL (14.0-18.0); LYMPHOCYTES # (AUTO) 1.8 10^3/uL (1.5-3.5); LYMPHOCYTES % (AUTO) 15.4 %; MEAN CORPUSCULAR HEMOGLOBIN 29.6 pg (27.0-31.0); MEAN CORPUSCULAR HGB CONC 34.8 g/dL (32.0-36.0); MEAN CORPUSCULAR VOLUME 85.2 fL (80.0-94.0); MEAN PLATELET VOLUME 9.3 fL (7.4-11.4); MONOCYTES # (AUTO) 1.3 10^3/uL (0.0-1.0); MONOCYTES % (AUTO) 11.6 %; NEUTROPHILS # (AUTO) 8.3 10^3/uL (1.5-6.6); NEUTROPHILS % (AUTO) 72.1 %; PLT - PLATELET COUNT 167 10^3/uL (130-450); RED BLOOD COUNT 4.59 10^6/uL (4.70-6.10); WHITE BLOOD COUNT 11.5 x10^3/uL (4.8-10.8)
--- NOTE | 2020-02-15 15:44 | ED Physician Documentation ---
PD HPI MHE - Stated complaint Stated Complaint: ETOH/SI - History obtained from History obtained from: Patient - History of Present Illness Primary symptom: Suicidal ideation, Other (alcoholism) Timing - onset: Chronic Pain level max: 0 Pain level now: 0 Contributing factors: Substance abuse - ETOH Similar symptoms before: Diagnosis (depression) Recently seen: Emergency Dept (yesterday for same) - Additional information Additional information: 39-year-old male with a history of chronic alcoholism and likely cirrhosis presents to the emergency department stating and that he felt like he just wanted to go to sleep and not wake up. He is not actively suicidal. Does not have a plan. States that it is worse when he is drinking alcohol. He is an alcoholic and states he cannot stop drinking. Review of Systems Ten Systems: 10 systems reviewed and negative Constitutional: denies: Fever, Chills Respiratory: denies: Cough GI: denies: Vomiting, Diarrhea Skin: denies: Rash Musculoskeletal: denies: Neck pain, Back pain Neurologic: denies: Headache Psychiatric: reports: Depressed, Suicidal (no plan). denies: Homicidal PD PAST MEDICAL HISTORY - Past Medical History Past Medical History: Yes Cardiovascular: Hypertension GI: Cirrhosis Psych: Depression - Past Surgical History Past Surgical History: No - Present Medications Home Medications: Ambulatory Orders Medication Instructions Recorded Confirmed FLUoxetine [PROzac] 40 mg PO DAILY 12/25/19 02/15/20 Losartan Potassium 50 mg PO DAILY 12/25/19 02/15/20 Naltrexone HCl 50 mg PO DAILY 12/25/19 02/15/20 Melatonin 9 mg PO QPM 02/15/20 02/15/20 hydrOXYzine pamoate [Hydroxyzine 25 mg PO PRN PRN MDD 3 02/15/20 02/15/20 Pamoate] traZODone [Desyrel] 50 mg PO QPM 02/15/20 02/15/20 - Allergies Allergies/Adverse Reactions: Allergies Allergy/AdvReac Type Severity Reaction Status Date / Time No Known Drug Allergies Allergy Verified 02/15/20 15:34 - Social History Does the pt smoke?: Yes Smoking Status: Current every day smoker Does the pt drink ETOH?: Yes Does the pt have substance abuse?: No - Immunizations Immunizations are current?: Yes - POLST Patient has POLST: No PD ED PE NORMAL - Vitals Vital signs reviewed: Yes - General General: Alert and oriented X 3, No acute distress - HEENT HEENT: Moist mucous membranes - Neck Neck: Supple, no meningeal sign - Cardiac Cardiac: RRR, Strong equal pulses - Respiratory Respiratory: No respiratory distress, Clear bilaterally - Abdomen Abdomen: Soft, Non tender, Non distended - Derm Derm: Warm and dry, No rash - Extremities Extremities: No edema - Neuro Neuro: Alert and oriented X 3 - Psych Psych: Normal mood, Normal affect Results - Vitals Vitals: Vital Signs - 24 hr 02/15/20 02/15/20 02/15/20 15:34 15:43 18:44 Temperature 36.6 C 36.7 C Heart Rate 93 93 85 Respiratory 17 16 16 Rate Blood Pressure 121/65 105/57 L 122/69 O2 Saturation 98 96 98 02/15/20 19:16 Temperature 36.8 C Heart Rate 104 H Respiratory 16 Rate Blood Pressure 131/81 H O2 Saturation 95 Oxygen O2 Source Room air - Labs Labs: Laboratory Tests 02/15/20 02/15/20 02/15/20 15:30 15:30 15:30 WBC 11.5 H RBC 4.59 L Hgb 13.6 L Hct 39.1 L MCV 85.2 MCH 29.6 MCHC 34.8 RDW 17.0 H Plt Count 167 MPV 9.3 Neut # (Auto) 8.3 H Lymph # (Auto) 1.8 Craig # (Auto) 1.3 H Eos # (Auto) 0.0 Baso # (Auto) 0.1 Absolute Nucleated RBC 0.00 Nucleated RBC % 0.0 Sodium 136 Potassium 2.8 L Chloride 100 L Carbon Dioxide 23 Anion Gap 13.0 BUN 11 Creatinine 0.8 Estimated GFR (MDRD) 108 Glucose 171 H Calcium 8.0 L Total Bilirubin 4.1 H AST 191 H ALT 89 H Alkaline Phosphatase 128 H Total Protein 7.1 Albumin 3.5 Globulin 3.6 Albumin/Globulin Ratio 1.0 Lipase 80 H TSH 1.05 Urine Color Urine Clarity Urine pH Ur Specific [place] Urine Protein Urine Glucose (UA) Urine Ketones Urine Occult Blood Urine Nitrite Urine Bilirubin Urine Urobilinogen Ur Leukocyte Esterase Urine RBC Urine WBC Ur Squamous Epith Cells Urine Bacteria Urine Casts Ur Microscopic Review Urine Culture Comments Salicylates < 6.0 Urine Opiates Screen Ur Oxycodone Screen Urine Methadone Screen Ur Propoxyphene Screen Acetaminophen < 10 L Ur Barbiturates Screen Ur Tricyclics Screen Ur Phencyclidine Scrn Ur Amphetamine Screen U Methamphetamines Scrn U Benzodiazepines Scrn Urine Cocaine Screen U Cannabinoids Screen Ethyl Alcohol 326.1 02/15/20 19:03 WBC RBC Hgb Hct MCV MCH MCHC RDW Plt Count MPV Neut # (Auto) Lymph # (Auto) Craig # (Auto) Eos # (Auto) Baso # (Auto) Absolute Nucleated RBC Nucleated RBC % Sodium Potassium Chloride Carbon Dioxide Anion Gap BUN Creatinine Estimated GFR (MDRD) Glucose Calcium Total Bilirubin AST ALT Alkaline Phosphatase Total Protein Albumin Globulin Albumin/Globulin Ratio Lipase TSH Urine Color DARK YELLOW Urine Clarity CLEAR Urine pH 6.0 Ur Specific [place] >=1.030 H Urine Protein 100 H Urine Glucose (UA) NEGATIVE Urine Ketones NEGATIVE Urine Occult Blood SMALL H Urine Nitrite POSITIVE H Urine Bilirubin SMALL H Urine Urobilinogen 0.2 (NORMAL) Ur Leukocyte Esterase NEGATIVE Urine RBC 0-5 Urine WBC 0-3 Ur Squamous Epith Cells NONE SEEN Urine Bacteria Rare Urine Casts 6-10 Hyaline Casts Ur Microscopic Review INDICATED Urine Culture Comments INDICATED Salicylates Urine Opiates Screen NEGATIVE Ur Oxycodone Screen NEGATIVE Urine Methadone Screen NEGATIVE Ur Propoxyphene Screen NEGATIVE Acetaminophen Ur Barbiturates Screen NEGATIVE Ur Tricyclics Screen NEGATIVE Ur Phencyclidine Scrn NEGATIVE Ur Amphetamine Screen NEGATIVE U Methamphetamines Scrn NEGATIVE U Benzodiazepines Scrn POSITIVE H Urine Cocaine Screen NEGATIVE U Cannabinoids Screen NEGATIVE Ethyl Alcohol PD MEDICAL DECISION MAKING - ED course Complexity details: reviewed results, re-evaluated patient, considered differential, d/w patient ED course: Patient with chronic alcoholism and chronic liver function test elevations. He is also suicidal. No plan currently. 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 No significant lab changes from prior. [facility] states blood etoh needs to be less than 0.100. Will allow patient to sober. IVF given. Rocephin given for UTI. Will sober in the ED and reassess when sober. Recontact [facility] for placement. Patient signed out to oncoming ED physician. Departure - Departure Clinical Impression: Suicidal ideation Liver cirrhosis, alcoholic Qualifiers: Ascites presence: unspecified Qualified Code(s): K70.30 - Alcoholic cirrhosis of liver without ascites Alcohol intoxication Qualifiers: Complication of substance-induced condition: uncomplicated Qualified Code(s): F10.920 - Alcohol use, unspecified with intoxication, uncomplicated UTI (urinary tract infection) Qualifiers: Urinary tract infection type: acute cystitis Hematuria presence: without hematuria Qualified Code(s): N30.00 - Acute cystitis without hematuria Condition: Stable
[2020-02-15 15:49] LABS: ACETAMINOPHEN < 10 ug/mL (10-30); ALBUMIN 3.5 g/dL (3.2-5.5); ALKALINE PHOSPHATASE 128 IU/L (42-121); ALT ALANINE AMINOTRANSFERASE 89 IU/L (10-60); AST ASPARTATE AMINOTRANSFERASE 191 IU/L (10-42); BILIRUBIN,TOTAL 4.1 mg/dL (0.2-1.0); BUN - BLOOD UREA NITROGEN 11 mg/dL (6-20); CARBON DIOXIDE - CO2 23 mmol/L (21-32); CHLORIDE 100 mmol/L (101-111); CREATININE 0.8 mg/dL (0.6-1.2); GLUCOSE 171 mg/dL (70-100); LIPASE 80 U/L (22-51); SALICYLATE < 6.0 mg/dL; SODIUM 136 mmol/L (135-145); TOTAL PROTEIN 7.1 g/dL (6.7-8.2)
[2020-02-15 19:12] LABS: MUDS CUTOFF CONCENTRATIONS CUTOFF CONC BELOW:
[2020-02-15 19:17] LABS: GLUCOSE, URINE (UA) NEGATIVE (NEGATIVE); KETONES,URINE (UA) NEGATIVE (NEGATIVE); LEUKOCYTE ESTERASE, URINE NEGATIVE (NEGATIVE); NITRITE,URINE POSITIVE (NEGATIVE); OCCULT BLOOD,URINE SMALL (NEGATIVE); PROTEIN,URINE 100 mg/dL (NEGATIVE); UROBILINOGEN,URINE 0.2 (NORMAL) E.U./dL (NORMAL)
[2020-02-15 19:20] LABS: BILIRUBIN,URINE SMALL (NEGATIVE); CLARITY,URINE CLEAR (CLEAR); ICTOTEST,URINE POSITIVE
[2020-02-15 19:25] LABS: AMPHETAMINE SCREEN,URINE NEGATIVE (NEGATIVE); BENZODIAZEPINES SCREEN, URINE POSITIVE (NEGATIVE); COCAINE SCREEN URINE NEGATIVE (NEGATIVE); METHADONE SCREEN, URINE NEGATIVE (NEGATIVE); METHAMPHETAMINES SCREEN, URINE NEGATIVE (NEGATIVE); OPIATE SCREEN, URINE NEGATIVE (NEGATIVE); OXYCODONE SCREEN, URINE NEGATIVE (NEGATIVE); PROPOXYPHENE SCREEN, URINE NEGATIVE (NEGATIVE); TRICYCLIC ANTIDEPRESSANT,URINE NEGATIVE (NEGATIVE)
[2020-02-15 19:27] LABS: RBC,URINE 0-5 /HPF (0-5); SQUAMOUS EPITHELIAL CELL,UR NONE SEEN (<= Few)
[2020-02-15 19:28] LABS: BACTERIA,URINE Rare /HPF (None Seen)
[2020-02-15] MEDS ORDERED: SODIUM CHLORIDE 0.9% 1,000 ML IV ONE (20:45)
[2020-02-15] MEDS ORDERED: cefTRIAXone 1 GM VIAL IVP STA (20:45)
[2020-02-15] MEDS ORDERED: LORazepam 2 MG/ML VIAL IVP STA (23:45)
[2020-02-16] MEDS ORDERED: SODIUM CHLORIDE 0.9% 1,000 ML IV ONE (00:31)
[2020-02-16] MEDS ORDERED: DILTIAZEM 50 MG/10 ML VIAL IVP ONE (03:18)
[2020-02-16] MEDS ORDERED: diltiaZEM INJ 5 MG/ML VIAL IVP STA ×2 (03:28→04:03)
[2020-02-16] MEDS ORDERED: DILTIAZEM 50 MG/10 ML VIAL ONE (03:29)
[2020-02-16] MEDS ORDERED: PHENobarbital 65 MG/ML VIAL IV STA (05:46)
[2020-02-16] MEDS ORDERED: POTASSIUM CHLOR 10 MEQ/100 ML 10 MEQ/100 ML BAG IV ONE ×2 (07:06→10:55)
[2020-02-16] MEDS ORDERED: LACTATED RINGERS 1,000 ML IV STA (07:06)
[2020-02-16 09:41] LABS: CALCIUM 7.5 mg/dL (8.5-10.3); CREATININE 0.6 mg/dL (0.6-1.2)
[2020-02-16] MEDS ORDERED: LORazepam 2 MG/ML VIAL IVP STA (10:12)
--- NOTE | 2020-02-16 10:15 | ED Physician Documentation ---
ED Addendum - Addendum Addendum: 02/16/20 10:13 The patient's alcohol level is now at 100. Recheck of his metabolic profile is improved. I talked with Dr. Moralez at [facility] who states she feels the patient needs inpatient detox rather than psychiatric care and declined the transfer at this point until social work can reassess the patient today and try a again for inpatient detox instead. If unable to do that, then to recontact [facility].
[2020-02-16] MEDS ORDERED: CALCIUM GLUCONATE 1,000 MG in SODIUM CHLORIDE 0.9% 50 ML IV STA (10:55)
[2020-02-16] MEDS ORDERED: METOPROLOL TARTRATE 50 MG TABLET PO STA (12:14)
[2020-02-16] MEDS ORDERED: ONDANSETRON 4 MG/2 ML VIAL IVP STA (15:01)
--- NOTE | 2020-02-16 16:34 | ED Physician Documentation ---
ED Addendum - Addendum Addendum: 02/16/20 16:32 Patient was evaluated by social work, [facility]i refuses the patient, they state that he needs detox. The DCR Silvia was consulted and patient does not meet criteria for L or involuntary hold. He is not homicidal or suicidal at this time. 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 He will return if he worsens. Counseled again to stop drinking as he is damaging his liver significantly. Patient counseled regarding signs and symptoms for which I believe and urgent re-evaluation would be necessary. Patient with good understanding of and agreement to plan and is comfortable going home at this time This document was made in part using voice recognition software. While efforts are made to proofread this document, sound alike and grammatical errors may occur. Departure - Departure Disposition: 01 Home, Self Care Clinical Impression: Alcoholism, Suicidal ideation Liver cirrhosis, alcoholic Qualifiers: Ascites presence: unspecified Qualified Code(s): K70.30 - Alcoholic cirrhosis of liver without ascites Alcohol intoxication Qualifiers: Complication of substance-induced condition: uncomplicated Qualified Code(s): F10.920 - Alcohol use, unspecified with intoxication, uncomplicated UTI (urinary tract infection) Qualifiers: Urinary tract infection type: acute cystitis Hematuria presence: without hematuria Qualified Code(s): N30.00 - Acute cystitis without hematuria Condition: Stable Instructions: ED Alcohol Intoxication Follow-Up: OMAR BRYAN MD [Primary Care Provider] - Within 1 week Prescriptions: Cephalexin [Keflex] 500 mg PO Q6H #20 capsule Comments: Return if you worsen. You need to stop drinking alcohol. [place] and alcoholic anonymous. You are damaging your liver and will go into liver failure if you keep drinking alcohol. Crisis Line and is available to talk to someone [email or web address] is also available to chat with someone online if you prefer. There are also many resources on this website and apps for your phone to help with your mental health You can also text the word START to [phone] to chat with someome via text.
[2020-02-16 17:44] VITALS: BP 171/106
== END 2020-02-16 17:46 | disposition home or self-care (01) ==
LOC: EDUNIT# → ED 15:16
DX: R45.851 Suicidal ideations (principal); K70.30 Alcoholic cirrhosis of liver without ascites; F10.229 Alcohol dependence with intoxication, unspecified; F10.239 Alcohol dependence with withdrawal, unspecified; N39.0 Urinary tract infection, site not specified; I10 Essential (primary) hypertension; F17.200 Nicotine dependence, unspecified, uncomplicated
CPT/HCPCS: 36415; 80048; 80320; 80329; 81001; 83690; 83735; 87086; 93005; 96361; 96365; 96366; 96375; 96376; 99284; 99285; A9270; J2060; J7040; J7120; 80053; 80306; 80307; 81003; 84443; 85025

== ENCOUNTER 2020-04-17 09:52 | Inpatient (IN) | payer OTHER ==
[2020-04-17 10:52] LABS: BASOPHILS % (AUTO) 0.3 %; EOSINOPHILS # (AUTO) 0.2 10^3/uL (0.0-0.7); EOSINOPHILS % (AUTO) 2.3 %; HGB - HEMOGLOBIN 11.2 g/dL (14.0-18.0); LYMPHOCYTES # (AUTO) 1.1 10^3/uL (1.5-3.5); LYMPHOCYTES % (AUTO) 10.2 %; MEAN CORPUSCULAR HEMOGLOBIN 32.8 pg (27.0-31.0); MEAN CORPUSCULAR HGB CONC 33.8 g/dL (32.0-36.0); MEAN CORPUSCULAR VOLUME 97.1 fL (80.0-94.0); MEAN PLATELET VOLUME 9.9 fL (7.4-11.4); MONOCYTES # (AUTO) 1.4 10^3/uL (0.0-1.0); MONOCYTES % (AUTO) 13.9 %; NEUTROPHILS # (AUTO) 7.5 10^3/uL (1.5-6.6); NEUTROPHILS % (AUTO) 72.6 %; PLT - PLATELET COUNT 89 10^3/uL (130-450); RED BLOOD COUNT 3.41 10^6/uL (4.70-6.10); RED CELL DISTRIBUTION WIDTH 19.7 % (12.0-15.0); WHITE BLOOD COUNT 10.4 x10^3/uL (4.8-10.8)
[2020-04-17 11:17] LABS: ALBUMIN 2.4 g/dL (3.2-5.5); ALBUMIN/GLOBULIN RATIO 0.6 (1.0-2.2); BILIRUBIN,TOTAL 8.9 mg/dL (0.2-1.0); CALCIUM 8.1 mg/dL (8.5-10.3); CREATININE 0.6 mg/dL (0.6-1.2); TOTAL PROTEIN 6.2 g/dL (6.7-8.2)
[2020-04-17 11:29] LABS: INR 2.4 (0.8-1.2); PT - PROTHROMBIN TIME 26.2 secs (9.9-12.6)
[2020-04-17] MEDS ORDERED: FOLIC ACID INJ 1 MG, THIAMINE INJ 100 MG, MAGNESIUM SULFATE 2 GM, MULTIVITAMIN 10 ML in... IV STA ×5 (12:02)
[2020-04-17] MEDS ORDERED: POTASSIUM CHLORIDE 20 MEQ TABLET PO STA (12:03)
--- NOTE | 2020-04-17 12:06 | ED Physician Documentation ---
History of Present Illness - Stated complaint Stated Complaint: SHAKES - Chief complaint Chief Complaint: General - History obtained from History obtained from: Patient - History of Present Illness Timing: How many weeks ago (2) - Additonal information Additional information: 39-year-old alcoholic male who is gone through a divorce and separation from the [place] in the past several months has begun to drink even more than usual. He is developed some nausea and abdominal pain and stopped drinking about 1 week ago. He relates going through the [employer] having nausea vomiting and diarrhea and the symptoms resolved 2 days ago. He is here now feeling poorly feeling very weak and taking a lot of energy just to walk. When he was unable to hold his cell phone up his ex- insisted he come to the emergency department. The patient denies any blood in his vomitus he does state that he has had some blood on the paper with the diarrhea. He notes that his stomach has swollen and his skin has turned yellow. He has plans to go to [place] in 3 days. He plans on driving himself there he has family there and this is where his support is. He has been going to counseling. Review of Systems Constitutional: reports: Fatigue, Sweats. denies: Fever Eyes: denies: Decreased vision Ears: denies: Ear pain Nose: reports: Congestion Throat: denies: Sore throat Cardiac: denies: Chest pain / pressure, Palpitations Respiratory: reports: Dyspnea, Cough GI: reports: Abdominal Swelling, Nausea (resolved 2 days ago), Diarrhea : denies: Dysuria, Frequency Skin: denies: Rash Musculoskeletal: denies: Neck pain, Back pain Neurologic: reports: Generalized weakness. denies: Focal weakness, Numbness PD PAST MEDICAL HISTORY - Past Medical History Past Medical History: Yes Cardiovascular: Hypertension GI: Cirrhosis Psych: Depression - Past Surgical History Past Surgical History: No - Present Medications Home Medications: Ambulatory Orders Medication Instructions Recorded Confirmed Naltrexone HCl 50 mg PO DAILY 12/25/19 04/17/20 Melatonin 9 mg PO QPM 02/15/20 04/17/20 FLUoxetine [PROzac] 40 mg PO DAILY 04/17/20 04/17/20 Losartan [Cozaar] 25 mg PO DAILY 04/17/20 04/17/20 traZODone [Desyrel] 50 mg PO QPM 04/17/20 04/17/20 - Allergies Allergies/Adverse Reactions: Allergies Allergy/AdvReac Type Severity Reaction Status Date / Time No Known Drug Allergies Allergy Verified 04/17/20 10:00 - Social History Does the pt smoke?: Yes Smoking Status: Current every day smoker Does the pt drink ETOH?: Yes Does the pt have substance abuse?: No - Immunizations Immunizations are current?: Yes - POLST Patient has POLST: No PD ED PE NORMAL - Vitals Vital signs reviewed: Yes (hypertensive ) - General General: Alert and oriented X 3, No acute distress, Well developed/nourished - HEENT HEENT: Atraumatic, PERRL, EOMI, Ears normal, Other (There is scleral icterus and the mucous membranes are dry.) - Neck Neck: Supple, no meningeal sign, No bony TTP - Cardiac Cardiac: RRR, No murmur - Respiratory Respiratory: No respiratory distress, Other - Abdomen Abdomen: Soft, Non tender, Other (The abdomen is distended with a fluid wave. Consistent with the presence of ascites. There is no specific tenderness.) - Back Back: No CVA TTP, No spinal TTP - Derm Derm: Normal color, Warm and dry, No rash - Extremities Extremities: No deformity, No edema, No calf tenderness / cord - Neuro Neuro: Alert and oriented X 3, patch washer 2-12 intact, No motor deficit, Normal speech Eye Opening: Spontaneous Motor: Obeys Commands Verbal: Oriented GCS Score: 15 - Psych Psych: Normal mood, Normal affect Results - Vitals Vitals: Vital Signs - 24 hr 04/17/20 04/17/20 04/17/20 09:57 10:05 12:00 Temperature 36.4 C L Heart Rate 95 93 90 Respiratory 16 15 15 Rate Blood Pressure 146/87 H 156/100 H 145/82 H O2 Saturation 97 96 95 Oxygen O2 Source Room air - EKG (time done) 1128 Rate: Rate (enter#) (91) Intervals: Prolonged QT Ischemia: Other (T waves are diffusely flattened.) Compare to prior EKG: Changed from prior EKG (SPT 02-16-2020 QT interval is prolonged and the diffuse T wave flattening has worsened. ) Computer interpretation: Agree with computer - Labs Labs: Laboratory Tests 04/17/20 04/17/20 04/17/20 10:45 10:45 10:45 WBC 10.4 RBC 3.41 L Hgb 11.2 L Hct 33.1 L MCV 97.1 H MCH 32.8 H MCHC 33.8 RDW 19.7 H Plt Count 89 L MPV 9.9 Neut # (Auto) 7.5 H Lymph # (Auto) 1.1 L Drew # (Auto) 1.4 H Eos # (Auto) 0.2 Baso # (Auto) 0.0 Absolute Nucleated RBC 0.00 Nucleated RBC % 0.0 PT 26.2 H INR 2.4 H Sodium 139 Potassium 1.8 L* Chloride 94 L Carbon Dioxide 35 H Anion Gap 10.0 BUN 8 Creatinine 0.6 Estimated GFR (MDRD) 150 Glucose 131 H Calcium 8.1 L Total Bilirubin 8.9 H AST 162 H ALT 72 H Alkaline Phosphatase 219 H Total Protein 6.2 L Albumin 2.4 L Globulin 3.8 Albumin/Globulin Ratio 0.6 L Lipase 104 H Urine Color Urine Clarity Urine pH Ur Specific [place] Urine Protein Urine Glucose (UA) Urine Ketones Urine Occult Blood Urine Nitrite Urine Bilirubin Urine Urobilinogen Ur Leukocyte Esterase Urine RBC Urine WBC Ur Squamous Epith Cells Urine Bacteria Ur Microscopic Review Urine Culture Comments Urine Opiates Screen Ur Oxycodone Screen Urine Methadone Screen Ur Propoxyphene Screen Ur Barbiturates Screen Ur Tricyclics Screen Ur Phencyclidine Scrn Ur Amphetamine Screen U Methamphetamines Scrn U Benzodiazepines Scrn Urine Cocaine Screen U Cannabinoids Screen Ethyl Alcohol 04/17/20 04/17/20 04/17/20 10:45 12:15 12:15 WBC RBC Hgb Hct MCV MCH MCHC RDW Plt Count MPV Neut # (Auto) Lymph # (Auto) Drew # (Auto) Eos # (Auto) Baso # (Auto) Absolute Nucleated RBC Nucleated RBC % PT INR Sodium Potassium Chloride Carbon Dioxide Anion Gap BUN Creatinine Estimated GFR (MDRD) Glucose Calcium Total Bilirubin AST ALT Alkaline Phosphatase Total Protein Albumin Globulin Albumin/Globulin Ratio Lipase Urine Color DARK YELLOW Urine Clarity CLEAR Urine pH 7.0 Ur Specific [place] 1.010 Urine Protein TRACE Urine Glucose (UA) NEGATIVE Urine Ketones NEGATIVE Urine Occult Blood TRACE-LYSE Urine Nitrite POSITIVE H Urine Bilirubin LARGE H Urine Urobilinogen 2 H Ur Leukocyte Esterase NEGATIVE Urine RBC 0-5 Urine WBC 0-3 Ur Squamous Epith Cells RARE Squamous Urine Bacteria Few Ur Microscopic Review INDICATED Urine Culture Comments INDICATED Urine Opiates Screen NEGATIVE Ur Oxycodone Screen NEGATIVE Urine Methadone Screen NEGATIVE Ur Propoxyphene Screen NEGATIVE Ur Barbiturates Screen POSITIVE H Ur Tricyclics Screen NEGATIVE Ur Phencyclidine Scrn NEGATIVE Ur Amphetamine Screen NEGATIVE U Methamphetamines Scrn NEGATIVE U Benzodiazepines Scrn NEGATIVE Urine Cocaine Screen NEGATIVE U Cannabinoids Screen NEGATIVE Ethyl Alcohol < 5.0 PD MEDICAL DECISION MAKING - ED course Complexity details: reviewed old records, reviewed results, re-evaluated patient, considered differential, d/w patient ED course: 39-year-old alcoholic male has withdrawn from alcohol 1 week ago. Today he does not have much in the way of shakes he is not vomiting but he does have ascites, jaundice, thrombocytopenia and a critically low potassium. He relates his reason for coming to the emergency department today is related to his weakness. When he was too weak to hold up his cell phone his ex- insisted he come to the emergency department. Here in the emergency department he is administered a banana bag and vitamin K as well as potassium. He is given both oral and intravenous potassium.Dr. Morgan is consulted in the case and graciously agrees to admit the patient in the hospital for further care. Departure - Departure Disposition: 66 [facility] DC/Xfer Clinical Impression: Hypokalemia, Alcoholism Liver cirrhosis, alcoholic Qualifiers: Ascites presence: with ascites Qualified Code(s): K70.31 - Alcoholic cirrhosis of liver with ascites Condition: Serious Discharge Date/Time: 04/17/20 13:20
[2020-04-17] MEDS ORDERED: IPRATROPIUM/ALBUTEROL 3 ML NEB INH STA (12:08)
[2020-04-17] MEDS: POTASSIUM CHLOR 10 MEQ/100 ML 10 MEQ/100 ML BAG IV SCH ×10 (12:19→23:11)
[2020-04-17] MEDS ORDERED: PHYTONADIONE 10 MG/ML AMP IVP STA (12:20)
[2020-04-17] MEDS ORDERED: ONDANSETRON 4 MG/2 ML VIAL IVP SCH (12:24)
[2020-04-17 12:27] LABS: GLUCOSE, URINE (UA) NEGATIVE (NEGATIVE); KETONES,URINE (UA) NEGATIVE (NEGATIVE); LEUKOCYTE ESTERASE, URINE NEGATIVE (NEGATIVE); NITRITE,URINE POSITIVE (NEGATIVE); OCCULT BLOOD,URINE TRACE-LYSE (NEGATIVE); PROTEIN,URINE TRACE mg/dL (NEGATIVE); UROBILINOGEN,URINE 2 E.U./dL (NORMAL)
[2020-04-17 12:32] LABS: BILIRUBIN,URINE LARGE (NEGATIVE); CLARITY,URINE CLEAR (CLEAR); ICTOTEST,URINE POSITIVE
[2020-04-17 12:40] LABS: RBC,URINE 0-5 /HPF (0-5); SQUAMOUS EPITHELIAL CELL,UR RARE Squamous (<= Few)
[2020-04-17 12:41] LABS: BACTERIA,URINE Few /HPF (None Seen)
--- NOTE | 2020-04-17 12:57 | PHARMACY PROGRESS NOTE ---
- Best Possible Medication History Admit Date and Time: 04/17/20 1222 Processed by: Pharmacy Medication History completed: Yes Patient Interview: Completed Secondary Source(s): Pharmacy records, Insurance records As the person ultimately responsible for medication therapy, providers are able to order a medication from an existing home medication list in [facility] via the "Reconcile Routine" prior to Confirmation of that medication by integrated logistics support manager. Such practice is discouraged except when the physician, in their clinical judgment, deems that a medical need exists for a medication without regard to previous use.
[2020-04-17] MEDS ORDERED: NICOTINE 14 MG PATCH TOP SCH (13:26)
[2020-04-17] MEDS ORDERED: LORazepam 1 MG TABLET PO PRN (13:26)
[2020-04-17 13:40] LABS: MUDS CUTOFF CONCENTRATIONS CUTOFF CONC BELOW:
[2020-04-17 14:01] LABS: AMPHETAMINE SCREEN,URINE NEGATIVE (NEGATIVE); BENZODIAZEPINES SCREEN, URINE NEGATIVE (NEGATIVE); COCAINE SCREEN URINE NEGATIVE (NEGATIVE); METHADONE SCREEN, URINE NEGATIVE (NEGATIVE); METHAMPHETAMINES SCREEN, URINE NEGATIVE (NEGATIVE); OPIATE SCREEN, URINE NEGATIVE (NEGATIVE); OXYCODONE SCREEN, URINE NEGATIVE (NEGATIVE); PROPOXYPHENE SCREEN, URINE NEGATIVE (NEGATIVE); TRICYCLIC ANTIDEPRESSANT,URINE NEGATIVE (NEGATIVE)
[2020-04-17] MEDS: SODIUM CHLORIDE FLUSH 0.9% 10 ML SYRINGE IVP SCH (15:58)
[2020-04-17 16:18] LABS: INR 2.4 (0.8-1.2); PT - PROTHROMBIN TIME 25.9 secs (9.9-12.6)
--- NOTE | 2020-04-17 18:24 | XRAY Report ---
Reason: SOB, has ascites Procedure Date: 04/17/2020 Accession Number: [id number] / [id number] Procedure: XR - Chest 1 View X-Ray CPT Code: 50771 Final Report FULL RESULT: PROCEDURE: Chest 1 View X-Ray INDICATIONS: SOB, has ascites TECHNIQUE: One view of the chest was acquired. COMPARISON: None. FINDINGS: Surgical changes and devices: None. Lungs and pleura: Eventration of the right hemidiaphragm. No pleural effusions or pneumothorax. Lungs are clear. Mediastinum: Mediastinal contours appear normal. Heart size is normal. Bones and chest wall: No suspicious bony lesions. Overlying soft tissues appear unremarkable. IMPRESSION: Chest without acute cardiopulmonary abnormalities. Reviewed by: Omar Javier MD on 04/17/2020 6:22 PM PDT Approved by: Omar Javier MD on 04/17/2020 6:22 PM PDT Station ID: [id number]
--- NOTE | 2020-04-17 18:49 | HISTORY & PHYSICAL EXAMINATION ---
DATE OF SERVICE: 04/17/2020 Physician: Tiffanie Nina MD HISTORY OF PRESENT ILLNESS: This is a 39-year-old black male with a history of hypertension and alcoholic liver disease. The patient states that he had liver failure with ascites in the past that was treated by his doctor and by stopping drinking. The patient restarted alcohol abuse again and it was related to getting through a divorce and being released from the [facility]. The patient stopped alcohol use on his own about 1 week ago and stated that he had about 5 days of shakes, diarrhea, vomiting and took his blood pressure medications only intermittently, could not keep any food down and he could only drink water which would stay down. Today, he was so weak that he could not even lift his cell phone and he was convinced by his ex- to go to the Emergency Room. In the ER, he was noted to be very weak, hypertensive at 156/100 and lab tests showed critical hypokalemia with a potassium of 1.8, abnormal liver function tests, bilirubin high at 8.9, INR 2.4, low platelets, all consistent with liver failure. The patient is being admitted for management of severe hypokalemia, dehydration and alcoholic liver failure with ascites. PAST MEDICAL HISTORY: Previous liver failure with ascites, which he states got better with some type of medication and abstinence from alcohol. Hypertension history. Anxiety and depression. ALLERGIES: NONE. MEDICATIONS 1. Prozac 40 mg daily. 2. Losartan 25 mg daily. 3. Melatonin 9 mg every evening. 4. Desyrel 50 mg every evening. 5. Naltrexone 50 mg daily. Of these, he was only taking the Losartan in the last 1 week. FAMILY HISTORY: No inherited diseases. SOCIAL HISTORY: The patient lives alone on the [address]. He has been evicted and needs to move out within 3 days or maximum within 1 week and is planning to drive to [place], [place] where he will live with family members. The patient smokes no cigarettes now and denies any drug use. The patient drank alcohol heavily until 1 week ago when he states that he stopped completely. He states he has gone through withdrawal before this last week. REVIEW OF SYSTEMS: He has had no fever or chills. There has been diarrhea, which is slightly improved. He has had no nausea or vomiting for 2 days. He has had no significant cough. He has been in isolation during the COVID pandemic. A comprehensive review of systems was performed and the pertinent positives are listed. The rest are negative. PHYSICAL EXAMINATION GENERAL: Middle-aged black male. He appears in mild distress from his ascites. He is not short of breath. He has myoclonic jerks intermittently of every part of his body. VITAL SIGNS: Blood pressure 130/68, heart rate 91 in sinus rhythm, afebrile, room air saturation 99%. HEENT: Reveals scleral icterus and dry oral mucosa. NECK: No JVD at a 30-degree upright angle. CHEST: Clear. HEART: No murmur. Normal heart sounds. ABDOMEN: Very distended with a fluid wave and moderately tense. Nontender. Normal bowel sounds. EXTREMITIES: Trace pretibial edema and 1+ pedal edema. NEUROLOGIC: He has nystagmus. Myoclonic jerks of his arms and neck are noted. He has asterixis of both upper extremities. LABORATORY DATA: INR 2.4 and after receiving vitamin K orally in the ER, it is still 2.4. White blood count 10.4, hemoglobin 11.9 with MCV 97, platelet count low at 89. Sodium 139, potassium 1.8. After receiving 40 mEq potassium p.o. and 40 mEq in IV runners, the repeat potassium is 2. Anion gap is normal at 10. BUN 8, creatinine 0.6, glucose 131, bilirubin 8.9, AST 162, ALT 72, alkaline phosphatase 219, albumin 2.4, lipase 104. Ammonia level 114. Urinalysis had positive nitrites, large bilirubin, large urobilinogen, leukocyte esterase negative and few bacteria and rare squamous cells. Urine toxicology screen was positive for barbiturates. His serum alcohol level was not detectable. EKG AND DIAGNOSTIC DATA: Normal sinus rhythm at a rate of 91, diffuse scooping ST-segment depressions and prolonged QTc interval at 562 milliseconds. There is no old EKG available for comparison. No imaging was done. IMPRESSION/DIAGNOSES 1. Hypokalemia. 2. Prolonged QT interval, likely related to the hypokalemia. 3. Liver failure with abnormal INR, thrombocytopenia, elevated ammonia, elevated liver tests, elevated bilirubin. 4. Ascites. 5. Alcoholic liver disease. 6. Alcohol abuse. 7. Hypertension. 8. Weakness. 9. Anemia. 10. Elevated lipase. PLAN: Admit the patient to Medical/Surgical status on a telemetry bed, watching for dysrhythmias with his severe hypokalemia. Continue with banana bag for IV fluids, which contains thiamine and other vitamins and also with potassium IV runners at 10 mEq per hour and another round of 50 mEq will be ordered. Check potassium in 6-12 hours and follow BMP daily. Follow his INRs daily. No more vitamin K will be given unless there are signs of bleeding. Start spironolactone for treating the ascites and to allow this this, we will put hold orders on lisinopril if blood pressure is under 120. Continue with a banana bag and thiamine replacement as well as vitamins daily. Order CIWA protocol to watch for any lingering alcohol withdrawal symptoms with Ativan if needed. Start physical therapy tomorrow once his potassium is in a normal range. Follow the CBC regarding his anemia and thrombocytopenia. Check a stool guaic. Follow the lipase, which could be a phase reactant but may also be alcoholic pancreatitis as well. Obtain a chest x-ray for a baseline. He may also need abdomen imaging with a CT. DEEP VENOUS THROMBOSIS PROPHYLAXIS: SCDs. CODE STATUS: FULL CODE. This was confirmed with the patient. ATTESTATION: The patient is expected to be discharged or transferred to another facility within 96 hours: Yes. cc: TD: 04/17/2020 17:37 [email or web address]
[2020-04-17] MEDS ORDERED: IOVERSOL 320 100 ML VIAL IVP ONE ×2 (19:57→20:39)
--- NOTE | 2020-04-17 20:59 | CT Report ---
Reason: abd pain. assess for ascites and pancreatis Procedure Date: 04/17/2020 Accession Number: [id number] / [id number] Procedure: CT - Abdomen/Pelvis W CPT Code: Final Report FULL RESULT: PROCEDURE: Abdomen/Pelvis W INDICATIONS: abd pain. assess for ascites and pancreatis CONTRAST: IV CONTRAST: Optiray 320 ml: 100 PO CONTRAST: *NO PO CONTRAST TECHNIQUE: After the administration of oral and intravenous contrast, 5 mm thick sections acquired from the diaphragms to the symphysis. 5 mm thick coronal and sagittal reformats were acquired. For radiation dose reduction, the following was used: automated exposure control, adjustment of mA and/or kV according to patient size. COMPARISON: None. FINDINGS: Image quality: Mild respiratory motion artifact noted. ABDOMEN: Lung bases: Mild bibasilar atelectasis. Heart size is normal. Atherosclerotic calcifications of the coronary arteries are present. Solid organs: Liver and spleen are normal in size and enhancement. Gallbladder is partially decompressed Biliary system is non dilated. Pancreas enhances normally. No peripancreatic stranding. No dilatation of the main pancreatic duct. No adrenal nodules. Kidneys demonstrate normal size and enhancement, without hydronephrosis. Peritoneum and bowel: There is circumferential bowel wall thickening of the colon slightly more pronounced than expected for degree of distention. This may be in part due to moderate scattered ascites throughout the abdomen and pelvis although an inflammatory/infectious process may have a similar appearance. Mild circumferential wall thickening of the small bowel favored to represent combination of incomplete distention and surrounding ascites. Normal appendix. No free air. No organized fluid collections. Nodes and vessels: No retroperitoneal or mesenteric adenopathy by size criteria. Aorta and inferior vena cava are normal in size. Miscellaneous: No ventral hernias. Diffuse anasarca of the abdomen and pelvis. PELVIS: Genitourinary: Bladder wall thickness is within normal limits for degree of bladder distention. Miscellaneous: No inguinal hernias or adenopathy. Bones: No suspicious bony lesions. No vertebral body compression fractures. IMPRESSION: 1. Moderate amount of ascites seen throughout the abdomen and pelvis without organized fluid collection, peritoneal enhancement, or free air. 2. Circumferential bowel wall thickening of the colon slightly more pronounced than expected for degree of bowel distention. This may be related to surrounding ascites; however, colitis from infectious versus inflammatory process may have a similar appearance. 3. Normal appendix. 4. No CT evidence for acute pancreatitis. Reviewed by: Omar Javier MD on 04/17/2020 8:58 PM PDT Approved by: Omar Javier MD on 04/17/2020 8:58 PM PDT Station ID: [id number]
[2020-04-17] MEDS ORDERED: LACTULOSE 10 GM /15 ML UDC PO SCH (21:00)
[2020-04-17] MEDS: FAMOTIDINE 20 MG TABLET PO SCH (21:38)
[2020-04-17] MEDS: traZODone 50 MG TABLET PO SCH (21:38)
[2020-04-17] MEDS: MELATONIN 9 MG PO SCH (22:05)
[2020-04-18] MEDS: SODIUM CHLORIDE FLUSH 0.9% 10 ML SYRINGE IVP SCH ×3 (01:45→18:18)
[2020-04-18] MEDS: POTASSIUM CHLOR 10 MEQ/100 ML 10 MEQ/100 ML BAG IV SCH ×8 (01:46→10:29)
[2020-04-18 05:07] LABS: BASOPHILS % (AUTO) 0.5 %; EOSINOPHILS % (AUTO) 3.3 %; LYMPHOCYTES % (AUTO) 17.5 %; MEAN CORPUSCULAR HEMOGLOBIN 31.5 pg (27.0-31.0); MEAN CORPUSCULAR HGB CONC 32.6 g/dL (32.0-36.0); MEAN CORPUSCULAR VOLUME 96.8 fL (80.0-94.0); MEAN PLATELET VOLUME 10.2 fL (7.4-11.4); MONOCYTES % (AUTO) 16.1 %; NEUTROPHILS % (AUTO) 61.7 %; PLT - PLATELET COUNT 92 10^3/uL (130-450); RED BLOOD COUNT 3.17 10^6/uL (4.70-6.10); RED CELL DISTRIBUTION WIDTH 19.7 % (12.0-15.0); WHITE BLOOD COUNT 10.1 x10^3/uL (4.8-10.8)
[2020-04-18 05:20] LABS: ABNORMAL LYMPHS % (MANUAL) 0 %; BAND NEUTROPHILS % (MANUAL) 0 %
[2020-04-18 05:24] LABS: ALBUMIN 2.3 g/dL (3.2-5.5); ALBUMIN/GLOBULIN RATIO 0.7 (1.0-2.2); BILIRUBIN,TOTAL 8.1 mg/dL (0.2-1.0); CALCIUM 7.8 mg/dL (8.5-10.3); CREATININE 0.5 mg/dL (0.6-1.2); MAGNESIUM 2.1 mg/dL (1.7-2.8); TOTAL PROTEIN 5.8 g/dL (6.7-8.2)
[2020-04-18 05:33] LABS: INR 2.1 (0.8-1.2); PT - PROTHROMBIN TIME 23.2 secs (9.9-12.6)
[2020-04-18 05:41] LABS: EOSINOPHILS # (MANUAL) 0.2 10^3/uL (0-0.7); LYMPHOCYTES # (MANUAL) 1.6 10^3/uL (1.5-3.5); LYMPHOCYTES % (MANUAL) 16 %; MONOCYTES # (MANUAL) 0.7 10^3/uL (0.0-1.0)
[2020-04-18 05:42] LABS: PLATELET MORPHOLOGY NORMAL APPEARANCE (NORMAL); RBC MORPHOLOGY (MULTIPLE) 1+ HYPOCHROMASIA (NORMAL)
[2020-04-18 05:43] LABS: DIFFERENTIAL COMMENT MANUAL DIFFERENTIAL; PLATELET ESTIMATE, MANUAL DECREASED (<130,000) (NORMAL)
--- NOTE | 2020-04-18 07:50 | PROVIDER PROGRESS NOTE ---
Assessment/Plan - Problem List (1) Hypokalemia Assessment/Plan: He has severe potassium deficiency. Potassium only increased from 1.8-2 0.0- 2.3. The hospital only has 8 bags of potassium 10 mEq riders left. Will finish these ordered potassium IV riders then switch to p.o. potassium replacement. Continue on telemetry. (2) Prolonged QT interval Assessment/Plan: EKG has been ordered for today and the QTc is 550 msec, which is still prolonged but slightly better than yesterday, when QTc was 562. Continue on telemetry while he is severely hypokalemic, since he has high risk of a dangerous arrythmia. (3) Diarrhea Assessment/Plan: The CT of the abdomen done last night showed possible colitis. We will order stool cultures and C. difficile. We will start empiric Flagyl p.o. and Cipro p.o. (4) C. difficile colitis Assessment/Plan: The CT of the abdomen done last night showed probable colitis. Started empiric Flagyl 250 mg p.o. q8h and Cipro p.o. Then the C diff result came back pos and will continue Flagyl at 500 mg p.o. q8h, and stop Cipro. Will de-escalate his diet to just clear liquids since his pain occurred after he ate a soft but solid diet for dinner last night. (5) Ascites Assessment/Plan: CT of the abdomen was done last night since he has diarrhea and had abdominal pain. The CT did show moderate ascites. There is no description of liver cirrhosis however. Spironolactone to begin today. Follow I's and O's and daily weights. (6) Alcoholic liver disease Assessment/Plan: He did not need any Ativan prn on the CIWA protocol, for any more signs of alcohol withdrawal (He reported that he "went through withdrawal on his own last week at home.") Elevated LFTs are slightly improved with AST > ALT, consistent with alcoholic liver disease. The ammonia level however increased from 114 to148. The INR improved slightly from 2.4 to 2.1, after getting 1 dose of vit K in the ER. The plt count improved minimally from 89K to 92K. Watch thrombocytopenia, get daily CBC Watch the elevated INR, get daily INR. Continue with banana bag iv replacement. After 48 hours will change to oral thia mine and vitamins. Continue with lactulose, titrate to produce 3 loose BMs daily. Follow ammonia level daily. (7) Anemia Assessment/Plan: Hemoglobin is 9 today, was 10.2 at admission. He is already 3 liters positive and fluid balance in less than 24 hours,getting his banana bag IV for fluids. Follow CBC daily. Guaiac of stool was ordered. Transfuse if hemoglobin under 7 or if bleeding is evident, transfuse if under 8. (8) Hx of essential hypertension Assessment/Plan: On lisinopril at home and was only taking it intermittently over the last 7 days because of nausea and vomiting. Here blood pressures are 120s without any blood pressure medications. Will not resume his lisinopril because of these blood pressures and in order to give room for using spironolactone which will drop his blood pressure also. (9) Abnormal EKG Assessment/Plan: Yesterday's and todya's EKGs show diffuse T wave flattening. Last night's CT scan reported coronary calcification. Therefore, he may have coronary ischemia. Will not treat with empiric daily aspirin due to thrombocytopenia, or empiric statin due to liver disease. He will need CAD evaluation with a stress test when he is more stable, as an outpatient. - Current Meds Current Meds: Current Medications Generic Name Dose Route Start Last Admin Trade Name Neo PRN Reason Stop Dose Admin Famotidine 20 mg 04/17/20 21:00 04/17/20 21:38 Pepcid PO 20 mg BID LU Administration Potassium Chloride 10 meq in 100 mls @ 100 mls/hr 04/18/20 02:00 04/18/20 07:32 Potassium Chloride IV 04/18/20 09:59 100 mls/hr Q1H LU Administration Non-Formulary Medication 9 mg 04/17/20 21:00 04/17/20 22:05 Melatonin [Melatonin] PO Not Given QPM LU Sodium Chloride 10 ml 04/17/20 17:00 04/18/20 01:45 Normal Saline Flush 0.9% IVP 10 ml 0100,0900,1700 LU Administration Trazodone HCl 50 mg 04/17/20 21:00 04/17/20 21:38 Desyrel PO 50 mg QPM LU Administration - Lab Result Fish Bone Diagrams: 04/19/20 04:45 04/19/20 04:45 - EKG Results EKG Interpreted Independently: Yes EKG Comparison: Changed from prior EKG EKG Findings: NSR, diffuse T wave flattening, improved QTc - Additional Planning My Orders: My Active Orders 04/17/20 12:24 Telemetry- [RC] Q4HR Vital Signs [RC] Q4HR 04/17/20 13:14 Activity Orders [RC] Q2HR IO [RC] IOSHIFT Initiate Bowel Care Protocol [RC] .protocol Initiate Line Care Protocol [RC] QSHIFT Initiate Personal Care Protoco [RC] .protocol Oxygen Therapy [RC] Routine Vital Signs [RC] 0800,1600,0000 Sodium Chloride Flush 0.9% [Normal Saline Flush 0.9%] 10 ml IVP PRN PRN Code Status [OTHERS] Routine Condition of Patient [OTHERS] Routine DVT Prophylaxis [OTHERS] Routine 04/17/20 13:15 Daily Weight [RC] 0600 IV Insert [RC] .ONCE SCDs [RC] QSHIFT 04/17/20 13:26 LORazepam [Ativan] 1 mg PO Q1H PRN 04/17/20 13:27 Blood Glucose POC [RC] Routine CIWA - AR Score Card [RC] Routine Routine Neuro Check [RC] Routine Routine 04/17/20 17:00 Sodium Chloride Flush 0.9% [Normal Saline Flush 0.9%] 10 ml IVP 0100,0900,1700 04/17/20 21:00 Famotidine [Pepcid] 20 mg PO BID Melatonin [Melatonin] 9 mg PO QPM traZODone [Desyrel] 50 mg PO QPM 04/18/20 C DIFF PCR Urgent CUL, STOOL [CULTURE, STOOL] [RM] Urgent 04/18/20 08:00 EKG - Electrocardiogram [RC] .ONCE Lactulose [Enulose] 10 gm PO TID metroNIDAZOLE [Flagyl] 250 mg PO Q8H 04/18/20 09:00 Ciprofloxacin [Cipro] 250 mg PO BID FLUoxetine [PROzac] 40 mg PO DAILY Multivitamin [Infuvite] 10 ml Folic Acid Inj 1 mg Thiamine Inj [Vitamin B-1 Inj] 100 mg Magnesium Sulfate 2 gm Sodium Chloride 0.9% [Normal Saline 0.9%] 1,000 ml IV DAILY Naltrexone HCl [Naltrexone HCl] 50 mg PO DAILY Vitamin [Trinatal Rx 1] 1 tab PO DAILY Spironolactone [Aldactone] 25 mg PO DAILY 04/18/20 Breakfast Clear Liquid Diet [DIET] 04/19/20 05:00 AMMONIA [CHEM] DAILYLAB CBC - COMP BLD CT W/AUTO DIFF [HEME] DAILYLAB CMP [COMPREHENSIVE METABOLIC PANEL] [CHEM] DAILYLAB MAGNESIUM [CHEM] DAILYLAB PT WITH INR [COAG] DAILYLAB 04/20/20 05:00 AMMONIA [CHEM] DAILYLAB CBC - COMP BLD CT W/AUTO DIFF [HEME] DAILYLAB CMP [COMPREHENSIVE METABOLIC PANEL] [CHEM] DAILYLAB MAGNESIUM [CHEM] DAILYLAB 04/21/20 05:00 CMP [COMPREHENSIVE METABOLIC PANEL] [CHEM] DAILYLAB Subjective - Subjective Patient Reports: Other (Sleeping all day, awakens to eat) Objective Vital Signs: Vital Signs - 24 hr 04/17/20 04/17/20 04/17/20 09:57 10:05 12:00 Temperature 36.4 C L Heart Rate 95 93 90 Heart Rate [ Brachial] Respiratory 16 15 15 Rate Blood Pressure 146/87 H 156/100 H 145/82 H Blood Pressure [Left Brachial artery] O2 Saturation 97 96 95 04/17/20 04/17/20 04/17/20 12:25 13:28 16:00 Temperature 36.7 C 36.7 C Heart Rate 86 Heart Rate [ 91 88 Brachial] Respiratory 12 20 18 Rate Blood Pressure Blood Pressure 131/68 H 121/78 [Left Brachial artery] O2 Saturation 99 93 04/17/20 04/17/20 04/18/20 17:30 20:43 00:00 Temperature 36.7 C 36.7 C 36.7 C Heart Rate 83 Heart Rate [ 87 91 Brachial] Respiratory 18 18 20 Rate Blood Pressure Blood Pressure 128/67 129/79 [Left Brachial artery] O2 Saturation 95 97 96 04/18/20 03:17 Temperature 36.8 C Heart Rate Heart Rate [ 92 Brachial] Respiratory 14 Rate Blood Pressure Blood Pressure 127/71 [Left Brachial artery] O2 Saturation 96 Oxygen O2 Source Room air I&O (Last 24 Hrs): Intake and Output Totals x24h 04/16/20 04/17/20 04/18/20 23:59 23:59 23:59 Intake Total 5093.533 713.333 Balance 2443.533 713.333 General: Other (Somnolent) HEENT: Mucous membr. moist/pink Neck: Supple Neuro: Alert, Other (Sleepy./ No more tremor at rest.) Cardiovascular: Regular rate Respiratory: No respiratory distress Abdomen: Other (Distended, not tender) Extremities: No edema - Results Results: Laboratory Results WBC 10.1 x10^3/uL (4.8-10.8) 04/18/20 04:50 RBC 3.17 10^6/uL (4.70-6.10) L 04/18/20 04:50 Hgb 10.0 g/dL (14.0-18.0) L 04/18/20 04:50 Hct 30.7 % (42.0-52.0) L 04/18/20 04:50 MCV 96.8 fL (80.0-94.0) H 04/18/20 04:50 MCH 31.5 pg (27.0-31.0) H 04/18/20 04:50 MCHC 32.6 g/dL (32.0-36.0) 04/18/20 04:50 RDW 19.7 % (12.0-15.0) H 04/18/20 04:50 Plt Count 92 10^3/uL (130-450) L 04/18/20 04:50 MPV 10.2 fL (7.4-11.4) 04/18/20 04:50 Neut # (Auto) Not Reportable 04/18/20 04:50 Lymph # (Auto) Not Reportable 04/18/20 04:50 [place] # (Auto) Not Reportable 04/18/20 04:50 Eos # (Auto) Not Reportable 04/18/20 04:50 Baso # (Auto) Not Reportable 04/18/20 04:50 Absolute Nucleated RBC Not Reportable 04/18/20 04:50 Total Counted 100 04/18/20 04:50 Band Neuts % (Manual) 0 % (0-10) 04/18/20 04:50 Abnorm Lymph % (Manual) 0 % 04/18/20 04:50 Nucleated RBC % Not Reportable 04/18/20 04:50 Neutrophils # (Manual) 7.6 10^3/uL (1.5-6.6) H 04/18/20 04:50 Lymphocytes # (Manual) 1.6 10^3/uL (1.5-3.5) 04/18/20 04:50 Monocytes # (Manual) 0.7 10^3/uL (0.0-1.0) 04/18/20 04:50 Eosinophils # (Manual) 0.2 10^3/uL (0-0.7) 04/18/20 04:50 Basophils # (Manual) 0.0 10^3/uL (0-0.1) 04/18/20 04:50 Differential Comment MANUAL DIFFERENTIAL 04/18/20 04:50 WBC Morphology NORMAL APPEARANCE (NORMAL) 04/18/20 04:50 Platelet Estimate DECREASED (<130,000) (NORMAL) 04/18/20 04:50 Platelet Morphology NORMAL APPEARANCE (NORMAL) 04/18/20 04:50 RBC Morph Micro Appear 1+ HYPOCHROMASIA (NORMAL) 04/18/20 04:50 PT 23.2 secs (9.9-12.6) H 04/18/20 04:50 INR 2.1 (0.8-1.2) H 04/18/20 04:50 Sodium 138 mmol/L (135-145) 04/18/20 04:50 Potassium 2.3 mmol/L (3.5-5.0) L* 04/18/20 04:50 Chloride 99 mmol/L (101-111) L 04/18/20 04:50 Carbon Dioxide 32 mmol/L (21-32) 04/18/20 04:50 Anion Gap 7.0 (6-13) 04/18/20 04:50 BUN 7 mg/dL (6-20) 04/18/20 04:50 Creatinine 0.5 mg/dL (0.6-1.2) L 04/18/20 04:50 Estimated GFR (MDRD) 185 (>89) 04/18/20 04:50 Glucose 121 mg/dL (70-100) H 04/18/20 04:50 Calcium 7.8 mg/dL (8.5-10.3) L 04/18/20 04:50 Magnesium 2.1 mg/dL (1.7-2.8) 04/18/20 04:50 Total Bilirubin 8.1 mg/dL (0.2-1.0) H 04/18/20 04:50 AST 128 IU/L (10-42) H 04/18/20 04:50 ALT 64 IU/L (10-60) H 04/18/20 04:50 Alkaline Phosphatase 167 IU/L (42-121) H 04/18/20 04:50 Ammonia 148.1 umol/L (7-35) H* 04/18/20 04:50 Total Protein 5.8 g/dL (6.7-8.2) L 04/18/20 04:50 Albumin 2.3 g/dL (3.2-5.5) L 04/18/20 04:50 Globulin 3.5 g/dL (2.1-4.2) 04/18/20 04:50 Albumin/Globulin Ratio 0.7 (1.0-2.2) L 04/18/20 04:50 Lipase 128 U/L (22-51) H 04/18/20 04:50 Urine Color DARK YELLOW 04/17/20 12:15 Urine Clarity CLEAR (CLEAR) 04/17/20 12:15 Urine pH 7.0 PH (5.0-7.5) 04/17/20 12:15 Ur Specific [place] 1.010 (1.002-1.030) 04/17/20 12:15 Urine Protein TRACE mg/dL (NEGATIVE) 04/17/20 12:15 Urine Glucose (UA) NEGATIVE mg/dL (NEGATIVE) 04/17/20 12:15 Urine Ketones NEGATIVE mg/dL (NEGATIVE) 04/17/20 12:15 Urine Occult Blood TRACE-LYSE (NEGATIVE) 04/17/20 12:15 Urine Nitrite POSITIVE (NEGATIVE) H 04/17/20 12:15 Urine Bilirubin LARGE (NEGATIVE) H 04/17/20 12:15 Urine Urobilinogen 2 E.U./dL (NORMAL) H 04/17/20 12:15 Ur Leukocyte Esterase NEGATIVE (NEGATIVE) 04/17/20 12:15 Urine RBC 0-5 /HPF (0-5) 04/17/20 12:15 Urine WBC 0-3 /HPF (0-3) 04/17/20 12:15 Ur Squamous Epith Cells RARE Squamous (<= Few) 04/17/20 12:15 Urine Bacteria Few /HPF (None Seen) 04/17/20 12:15 Ur Microscopic Review INDICATED 04/17/20 12:15 Urine Culture Comments INDICATED 04/17/20 12:15 Urine Opiates Screen NEGATIVE (NEGATIVE) 04/17/20 12:15 Ur Oxycodone Screen NEGATIVE (NEGATIVE) 04/17/20 12:15 Urine Methadone Screen NEGATIVE (NEGATIVE) 04/17/20 12:15 Ur Propoxyphene Screen NEGATIVE (NEGATIVE) 04/17/20 12:15 Ur Barbiturates Screen POSITIVE (NEGATIVE) H 04/17/20 12:15 Ur Tricyclics Screen NEGATIVE (NEGATIVE) 04/17/20 12:15 Ur Phencyclidine Scrn NEGATIVE (NEGATIVE) 04/17/20 12:15 Ur Amphetamine Screen NEGATIVE (NEGATIVE) 04/17/20 12:15 U Methamphetamines Scrn NEGATIVE (NEGATIVE) 04/17/20 12:15 U Benzodiazepines Scrn NEGATIVE (NEGATIVE) 04/17/20 12:15 Urine Cocaine Screen NEGATIVE (NEGATIVE) 04/17/20 12:15 U Cannabinoids Screen NEGATIVE (NEGATIVE) 04/17/20 12:15 Ethyl Alcohol < 5.0 mg/dL 04/17/20 10:45
[2020-04-18] MEDS ORDERED: metroNIDAZOLE 250 MG TABLET PO SCH (08:00)
[2020-04-18] MEDS ORDERED: LOSARTAN 50 MG TABLET PO SCH ×2 (09:00)
[2020-04-18] MEDS ORDERED: CIPROFLOXACIN 250 MG TABLET PO SCH (09:00)
[2020-04-18] MEDS ORDERED: MULTIVITAMIN 10 ML, FOLIC ACID INJ 1 MG, THIAMINE INJ 100 MG, MAGNESIUM SULFATE 2 GM in... IV SCH ×5 (09:00)
[2020-04-18] MEDS: FAMOTIDINE 20 MG TABLET PO SCH ×2 (09:18→21:09)
[2020-04-18] MEDS: SPIRONOLACTONE 25 MG TABLET PO SCH (09:20)
[2020-04-18] MEDS: PRENATAL VITAMIN TABLET PO SCH (09:20)
[2020-04-18] MEDS: FLUoxetine 10 MG CAPSULE PO SCH (09:20)
[2020-04-18] MEDS: NALTREXONE HCL 50 MG PO SCH (09:21)
[2020-04-18] MEDS: LACTULOSE 10 GM /15 ML UDC PO SCH ×3 (09:21→21:09)
[2020-04-18 12:13] LABS: CALCIUM 8.1 mg/dL (8.5-10.3); CREATININE 0.6 mg/dL (0.6-1.2)
[2020-04-18] MEDS: metroNIDAZOLE 250 MG TABLET PO SCH ×2 (14:15→21:09)
[2020-04-18] MEDS ORDERED: POTASSIUM CHLORIDE 20 MEQ TABLET PO SCH (17:00)
[2020-04-18] MEDS: traZODone 50 MG TABLET PO SCH (21:08)
[2020-04-18] MEDS: MELATONIN 9 MG PO SCH (21:10)
[2020-04-19] MEDS: SODIUM CHLORIDE FLUSH 0.9% 10 ML SYRINGE IVP SCH ×3 (00:26→17:22)
[2020-04-19 05:00] LABS: BASOPHILS # (AUTO) 0.1 10^3/uL (0.0-0.1); BASOPHILS % (AUTO) 0.7 %; EOSINOPHILS # (AUTO) 0.3 10^3/uL (0.0-0.7); EOSINOPHILS % (AUTO) 3.5 %; HGB - HEMOGLOBIN 10.8 g/dL (14.0-18.0); LYMPHOCYTES # (AUTO) 1.6 10^3/uL (1.5-3.5); MEAN CORPUSCULAR HEMOGLOBIN 32.8 pg (27.0-31.0); MEAN CORPUSCULAR HGB CONC 33.5 g/dL (32.0-36.0); MEAN CORPUSCULAR VOLUME 97.9 fL (80.0-94.0); MEAN PLATELET VOLUME 10.2 fL (7.4-11.4); MONOCYTES # (AUTO) 1.7 10^3/uL (0.0-1.0); MONOCYTES % (AUTO) 19.7 %; NEUTROPHILS # (AUTO) 4.8 10^3/uL (1.5-6.6); NEUTROPHILS % (AUTO) 56.2 %; PLT - PLATELET COUNT 108 10^3/uL (130-450); RED BLOOD COUNT 3.29 10^6/uL (4.70-6.10); RED CELL DISTRIBUTION WIDTH 19.9 % (12.0-15.0); WHITE BLOOD COUNT 8.5 x10^3/uL (4.8-10.8)
[2020-04-19 05:02] LABS: PT - PROTHROMBIN TIME 22.4 secs (9.9-12.6)
[2020-04-19 05:07] LABS: ALBUMIN 2.5 g/dL (3.2-5.5); ALBUMIN/GLOBULIN RATIO 0.7 (1.0-2.2); BILIRUBIN,TOTAL 7.9 mg/dL (0.2-1.0); CALCIUM 7.8 mg/dL (8.5-10.3); CREATININE 0.5 mg/dL (0.6-1.2); MAGNESIUM 2.1 mg/dL (1.7-2.8); TOTAL PROTEIN 6.1 g/dL (6.7-8.2)
[2020-04-19 05:24] LABS: PLATELET ESTIMATE, MANUAL DECREASED (<130,000) (NORMAL); PLATELET MORPHOLOGY NORMAL APPEARANCE (NORMAL); RBC MORPHOLOGY (MULTIPLE) 1+ HYPOCHROMASIA (NORMAL)
[2020-04-19] MEDS: LACTULOSE 10 GM /15 ML UDC PO SCH ×3 (05:29→21:47)
[2020-04-19] MEDS: metroNIDAZOLE 250 MG TABLET PO SCH ×2 (05:49→13:56)
[2020-04-19] MEDS: PRENATAL VITAMIN TABLET PO SCH (08:11)
[2020-04-19] MEDS: SPIRONOLACTONE 25 MG TABLET PO SCH (08:11)
[2020-04-19] MEDS: FAMOTIDINE 20 MG TABLET PO SCH ×2 (08:11→20:40)
[2020-04-19] MEDS: FLUoxetine 10 MG CAPSULE PO SCH (08:11)
[2020-04-19] MEDS: POTASSIUM CHLORIDE 20 MEQ TABLET PO SCH ×3 (08:11→17:22)
[2020-04-19] MEDS: NALTREXONE HCL 50 MG PO SCH (08:12)
[2020-04-19 09:49] LABS: GLUCOSE, URINE (UA) NEGATIVE (NEGATIVE); KETONES,URINE (UA) TRACE mg/dL (NEGATIVE); LEUKOCYTE ESTERASE, URINE NEGATIVE (NEGATIVE); NITRITE,URINE POSITIVE (NEGATIVE); OCCULT BLOOD,URINE TRACE-LYSE (NEGATIVE); PROTEIN,URINE NEGATIVE (NEGATIVE); UROBILINOGEN,URINE 0.2 (NORMAL) E.U./dL (NORMAL)
[2020-04-19 09:54] LABS: CLARITY,URINE CLEAR (CLEAR); ICTOTEST,URINE POSITIVE
[2020-04-19 09:55] LABS: BILIRUBIN,URINE LARGE (NEGATIVE)
--- NOTE | 2020-04-19 11:57 | ANESTHESIA PROCEDURE NOTE ---
Anesth Central Line Template - Central Line Central Line Preparation: Consent Obtained, Time out completed, Ultrasound used, Sterile prep and drape Central line type: Double lumen (5FR dual lumen PICC) Central line catheter tip site resides: Superior vena cava (SVC) Central line aftercare: Secured, Placement confirmed, No pneumothorax, No complications, Bundle checklist complete, Pt tolerated well, Other (Pt identified, consent, timeout. R UE prep/drape after sterile gown, gloves, mask, hat. R basilic v accessed using US. Wire threaded without difficulty. Dilator. Line cut to 39cm and threaded using tip tracker. Unable to change p wave height at maximal insertion but tracker indicates catheter went caudad. Hubbed, secured. Ports x2 easilt aspirate and flush blood. Tegaderm to site, call for PXCR.)
[2020-04-19] MEDS ORDERED: POTASSIUM CHLOR 20 MEQ/100 ML 20 MEQ/100 ML BAG IV ONE ×4 (12:00→23:02)
--- NOTE | 2020-04-19 12:01 | XRAY Report ---
Reason: PICC Placement Procedure Date: 04/19/2020 Accession Number: [id number] / [id number] Procedure: XR - Chest for Line Placement CPT Code: Final Report FULL RESULT: PROCEDURE: Chest for Line Placement INDICATIONS: PICC Placement TECHNIQUE: One view of the chest was acquired. COMPARISON: Reduced inspiratory chest plain film earlier same day reviewed.. FINDINGS: Surgical changes and devices: A PICC line from right-sided approach extends into the distal SVC. Lungs and pleura: No pleural effusions or pneumothorax. Lungs are again seen to appear mildly edematous but this is in the setting of reduced inspiratory volume bilaterally, right greater than left. Mediastinum: Mediastinal contours appear normal, despite reduced inspiratory volume. Heart size is normal. Bones and chest wall: No suspicious bony lesions. Overlying soft tissues appear unremarkable. IMPRESSION: 1. PICC line from a right-sided approach appears in normal position. 2. Mild alveolar edema pattern, reduced inspiratory volume bilaterally greater on the right than the left. No focal consolidative pneumonia found. If possible a deep inspiratory PA and lateral chest plain film could be obtained for more accurate assessment. Reviewed by: Bandar Lubin MD on 04/19/2020 12:00 PM PDT Approved by: Bandar Lubin MD on 04/19/2020 12:00 PM PDT Station ID: [id number]
[2020-04-19] MEDS: THIAMINE 100 MG TABLET PO SCH (12:27)
[2020-04-19] MEDS: diazePAM 5 MG TABLET PO PRN (14:22)
--- NOTE | 2020-04-19 15:47 | PROVIDER PROGRESS NOTE ---
Assessment/Plan - Problem List (1) Hypokalemia Assessment/Plan: Due to his persistent and severe hypokalemia, despite aggressive and large amounts of potassium replacement, will work him up for RTA or primary aldosteronism with obtaining spot urine sodium, potassium, chloride, creatinine and pH. Also send off plasma for aldosterone concentration and renin activity. Continue with Spironolactone which will help retain potassium. Continue to replace potassium aggressively. Will transfer to the ICU for c entral line placement for more rapid potassium infusions at 20 mEq/h, not 10 mEq/h. Due to his elevated INR and low platelets, a PICC line was chosen, not an IJ line. Continue daily oral potassium. Follow BMP daily and follow Potassium bid. Patient did not get ICU electrolyte protocol ordered in order that the provider control the infusion of potassium. Follow magnesium and phosphate daily. (2) Prolonged QT interval Assessment/Plan: It still appears prolonged on telemetry. EKG done today shows slight improvement in QTc, from 560 msec at admission to 55 0 msec yesterday, possibly 440 ms today. Continue telemetry (3) Diarrhea Assessment/Plan: There has been no improvement in his watery diarrhea which is positive for C. difficile. Closer nursing management in the ICU will help. Unfortunately he is still needs lactulose to clear his ammonia level, which adds to the diarrhea. Continue with p.o. metronidazole for treatment of C. difficile. We will eventually start symptomatic management with the addition of Imodium if possible. (4) C. difficile colitis Assessment/Plan: He had abdominal pain after getting his first solid meal 2 days ago. He was then de-escalated to clear liquids. This morning he again got a regular diet. Will change to solid foods but low fiber for ease of digestion in someone with colitis. (5) Ascites Assessment/Plan: Tinea spironolactone. Continue daily weights. I's and O's have been negative but mostly due to the losses of fluid with diarrhea yet. The IV banana bag was finished last night. (6) Alcoholic liver disease Assessment/Plan: He has slow improvement in platelets from 82 to 90 to 102. He has slow improvement in liver function tests. His daily ammonia level has gone from 114 to 148 and today 98. The INR is still elevated, was 2.4 and at admission and is 2.0 today. Will transition from IV banana bag with supplements to oral thiamine daily, daysi guallpaitamin and folate daily. We will request [employer] [facility] for further recommendation. CIWA protocol was ordered with PRN Ativan which he has not needed to use. Today he is "anxious" but this appears to be situational related to his housing eviction and family arriving from [place]. For this anxiety, I will order Valium. (8) Hx of essential hypertension Assessment/Plan: The ASHLEY inhibitor was discontinued in order to have room for Spironolactone to be started several days ago. BPs are stable with this management (9) Abnormal EKG Assessment/Plan: Besides prolonged QTc, the patient's EKG also has diffusely flat T waves. The CT scan reported seeing significant coronary calcification. He will need work-up for CAD after stabilization, as an outpatient. - Current Meds Current Meds: Current Medications Generic Name Dose Route Start Last Admin Trade Name Freq PRN Reason Stop Dose Admin Diazepam 5 mg 04/19/20 13:56 04/19/20 14:22 Valium PO 5 mg BID PRN Administration Anxiety Famotidine 20 mg 04/17/20 21:00 04/19/20 08:11 Pepcid PO 20 mg BID LU Administration Fluoxetine HCl 40 mg 04/18/20 09:00 04/19/20 08:11 Prozac PO 40 mg DAILY LU Administration Lactulose 10 gm 04/18/20 08:00 04/19/20 13:56 Enulose PO 10 gm TID LU Administration Metronidazole 500 mg 04/18/20 14:00 04/19/20 13:56 Flagyl PO 500 mg Q8H LU Administration Non-Formulary Medication 9 mg 04/17/20 21:00 04/18/20 21:10 Melatonin [Melatonin] PO Not Given QPM LU Non-Formulary Medication 50 mg 04/18/20 09:00 04/19/20 08:12 Naltrexone Hcl [Naltrexone Hcl] PO Not Given DAILY LU Potassium Chloride 20 meq 04/19/20 08:00 04/19/20 11:55 K-Dur PO 20 meq TIDWM LU Administration Multivit/Folic Acid/Iron 1 tab 04/18/20 09:00 04/19/20 08:11 Trinatal Rx 1 PO 1 tab DAILY LU Administration Sodium Chloride 10 ml 04/17/20 17:00 04/19/20 08:12 Normal Saline Flush 0.9% IVP 10 ml 0100,0900,1700 LU Administration Spironolactone 25 mg 04/18/20 09:00 04/19/20 08:11 Aldactone PO 25 mg DAILY LU Administration Thiamine HCl 100 mg 04/19/20 13:00 04/19/20 12:27 Vitamin B-1 PO 100 mg DAILY LU Administration Trazodone HCl 50 mg 04/17/20 21:00 04/18/20 21:08 Desyrel PO 50 mg QPM LU Administration - Lab Result Fish Bone Diagrams: 04/19/20 04:45 04/19/20 04:45 - Additional Planning My Orders: My Active Orders 04/19/20 04:45 ALDOSTERONE/RENIN ACTIVITY [REFLAB] Stat 04/19/20 10:48 PICC Line Insert [RC] .ONCE 04/19/20 13:00 Thiamine [Vitamin B-1] 100 mg PO DAILY 04/19/20 13:56 diazePAM [Valium] 5 mg PO BID PRN 04/19/20 16:00 POTASSIUM [CHEM] Timed 04/19/20 17:00 Saccharomyces Boulardii [Florastor] 500 mg PO BIDWM 04/19/20 Dinner DIET [Soft (Low Fiber) Diet] [DIET] 04/20/20 05:00 AMMONIA [CHEM] DAILYLAB CBC - COMP BLD CT W/AUTO DIFF [HEME] DAILYLAB CMP [COMPREHENSIVE METABOLIC PANEL] [CHEM] DAILYLAB MAGNESIUM [CHEM] DAILYLAB 04/21/20 05:00 CMP [COMPREHENSIVE METABOLIC PANEL] [CHEM] DAILYLAB Subjective - Subjective Patient Reports: Feeling Better, Other (No more fatigue or tremor.) Nursing Reports: Other (He is anxious about coordinating his eviction from housing [place] and seeing his father, flying up from [place] on Sun.) Objective Vital Signs: Vital Signs - 24 hr 04/18/20 04/18/20 04/19/20 16:00 20:02 00:02 Temperature 36.6 C 36.9 C 36.6 C Heart Rate [ 86 87 85 Brachial] Respiratory 20 20 14 Rate Blood Pressure 147/91 H 148/87 H 146/72 H [Left Brachial artery] O2 Saturation 97 95 98 04/19/20 04/19/20 04/19/20 03:06 07:23 08:54 Temperature 36.6 C 36.5 C 98.0 C H Heart Rate [ 89 78 85 Brachial] Respiratory 14 16 19 Rate Blood Pressure 142/81 H 142/84 H 135/83 H [Left Brachial artery] O2 Saturation 95 95 97 04/19/20 04/19/20 04/19/20 10:00 11:09 12:00 Temperature 36.8 C Heart Rate [ 86 87 89 Brachial] Respiratory 16 18 16 Rate Blood Pressure 142/92 H 131/91 H 150/96 H [Left Brachial artery] O2 Saturation 97 99 99 04/19/20 04/19/20 04/19/20 13:00 14:00 15:22 Temperature Heart Rate [ 89 88 83 Brachial] Respiratory 23 18 20 Rate Blood Pressure 135/91 H 128/78 149/88 H [Left Brachial artery] O2 Saturation 95 98 96 Oxygen O2 Source Room air I&O (Last 24 Hrs): Intake and Output Totals x24h 04/17/20 04/18/20 04/19/20 23:59 23:59 23:59 Intake Total 2443.533 3418.533 981 Balance 2443.533 3418.533 981 General: Alert, Oriented x3 HEENT: Mucous membr. moist/pink Neck: Supple Neuro: Alert, Non Focal Cardiovascular: Regular rate Respiratory: Chest non-tender Abdomen: Other (Distended) Extremities: No edema - Results Results: Laboratory Results WBC 8.5 x10^3/uL (4.8-10.8) 04/19/20 04:45 RBC 3.29 10^6/uL (4.70-6.10) L 04/19/20 04:45 Hgb 10.8 g/dL (14.0-18.0) L 04/19/20 04:45 Hct 32.2 % (42.0-52.0) L 04/19/20 04:45 MCV 97.9 fL (80.0-94.0) H 04/19/20 04:45 MCH 32.8 pg (27.0-31.0) H 04/19/20 04:45 MCHC 33.5 g/dL (32.0-36.0) 04/19/20 04:45 RDW 19.9 % (12.0-15.0) H 04/19/20 04:45 Plt Count 108 10^3/uL (130-450) L 04/19/20 04:45 MPV 10.2 fL (7.4-11.4) 04/19/20 04:45 Neut # (Auto) 4.8 10^3/uL (1.5-6.6) 04/19/20 04:45 Lymph # (Auto) 1.6 10^3/uL (1.5-3.5) 04/19/20 04:45 [place] # (Auto) 1.7 10^3/uL (0.0-1.0) H 04/19/20 04:45 Eos # (Auto) 0.3 10^3/uL (0.0-0.7) 04/19/20 04:45 Baso # (Auto) 0.1 10^3/uL (0.0-0.1) 04/19/20 04:45 Absolute Nucleated RBC 0.00 x10^3/uL 04/19/20 04:45 Total Counted 100 04/18/20 04:50 Band Neuts % (Manual) 0 % (0-10) 04/18/20 04:50 Abnorm Lymph % (Manual) 0 % 04/18/20 04:50 Nucleated RBC % 0.0 /100WBC 04/19/20 04:45 Neutrophils # (Manual) 7.6 10^3/uL (1.5-6.6) H 04/18/20 04:50 Lymphocytes # (Manual) 1.6 10^3/uL (1.5-3.5) 04/18/20 04:50 Monocytes # (Manual) 0.7 10^3/uL (0.0-1.0) 04/18/20 04:50 Eosinophils # (Manual) 0.2 10^3/uL (0-0.7) 04/18/20 04:50 Basophils # (Manual) 0.0 10^3/uL (0-0.1) 04/18/20 04:50 Differential Comment MANUAL DIFFERENTIAL 04/18/20 04:50 Manual Slide Review Indicated 04/19/20 04:45 WBC Morphology NORMAL APPEARANCE (NORMAL) 04/18/20 04:50 Platelet Estimate DECREASED (<130,000) (NORMAL) 04/19/20 04:45 Platelet Morphology NORMAL APPEARANCE (NORMAL) 04/19/20 04:45 RBC Morph Micro Appear 1+ HYPOCHROMASIA (NORMAL) 04/19/20 04:45 PT 22.4 secs (9.9-12.6) H 04/19/20 04:45 INR 2.0 (0.8-1.2) H 04/19/20 04:45 Sodium 139 mmol/L (135-145) 04/19/20 04:45 Potassium 2.2 mmol/L (3.5-5.0) L* 04/19/20 04:45 Chloride 101 mmol/L (101-111) 04/19/20 04:45 Carbon Dioxide 32 mmol/L (21-32) 04/19/20 04:45 Anion Gap 6.0 (6-13) 04/19/20 04:45 BUN 5 mg/dL (6-20) L 04/19/20 04:45 Creatinine 0.5 mg/dL (0.6-1.2) L 04/19/20 04:45 Estimated GFR (MDRD) 185 (>89) 04/19/20 04:45 Glucose 114 mg/dL (70-100) H 04/19/20 04:45 Calcium 7.8 mg/dL (8.5-10.3) L 04/19/20 04:45 Magnesium 2.1 mg/dL (1.7-2.8) 04/19/20 04:45 Total Bilirubin 7.9 mg/dL (0.2-1.0) H 04/19/20 04:45 AST 113 IU/L (10-42) H 04/19/20 04:45 ALT 63 IU/L (10-60) H 04/19/20 04:45 Alkaline Phosphatase 156 IU/L (42-121) H 04/19/20 04:45 Ammonia 96.4 umol/L (7-35) H* 04/19/20 04:45 Total Protein 6.1 g/dL (6.7-8.2) L 04/19/20 04:45 Albumin 2.5 g/dL (3.2-5.5) L 04/19/20 04:45 Globulin 3.6 g/dL (2.1-4.2) 04/19/20 04:45 Albumin/Globulin Ratio 0.7 (1.0-2.2) L 04/19/20 04:45 Lipase 96 U/L (22-51) H 04/19/20 04:45 Urine Color BROWN 04/19/20 09:40 Urine Clarity CLEAR (CLEAR) 04/19/20 09:40 Urine pH 7.0 PH (5.0-7.5) 04/19/20 09:40 Ur Specific [place] 1.020 (1.002-1.030) 04/19/20 09:40 Urine Protein NEGATIVE mg/dL (NEGATIVE) 04/19/20 09:40 Urine Glucose (UA) NEGATIVE mg/dL (NEGATIVE) 04/19/20 09:40 Urine Ketones TRACE mg/dL (NEGATIVE) 04/19/20 09:40 Urine Occult Blood TRACE-LYSE (NEGATIVE) 04/19/20 09:40 Urine Nitrite POSITIVE (NEGATIVE) H 04/19/20 09:40 Urine Bilirubin LARGE (NEGATIVE) H 04/19/20 09:40 Urine Urobilinogen 0.2 (NORMAL) E.U./dL (NORMAL) 04/19/20 09:40 Ur Leukocyte Esterase NEGATIVE (NEGATIVE) 04/19/20 09:40 Urine RBC 0-5 /HPF (0-5) 04/17/20 12:15 Urine WBC 0-3 /HPF (0-3) 04/17/20 12:15 Ur Squamous Epith Cells RARE Squamous (<= Few) 04/17/20 12:15 Urine Bacteria Few /HPF (None Seen) 04/17/20 12:15 Ur Microscopic Review INDICATED 04/17/20 12:15 Urine Culture Comments INDICATED 04/17/20 12:15 Ur Random Chloride 83 mmol/L 04/19/20 09:40 Urine Creatinine 176.2 mg/dL 04/19/20 09:40 Urine Sodium < 12.0 mmol/L 04/19/20 09:40 Urine Potassium 5.8 mmol/L 04/19/20 09:40 Nasal Screen MRSA (PCR) NEGATIVE (NEGATIVE) 04/19/20 09:40 Stl C. diff Tox B Gene POSITIVE (NEGATIVE) A* 04/18/20 08:10 Urine Opiates Screen NEGATIVE (NEGATIVE) 04/17/20 12:15 Ur Oxycodone Screen NEGATIVE (NEGATIVE) 04/17/20 12:15 Urine Methadone Screen NEGATIVE (NEGATIVE) 04/17/20 12:15 Ur Propoxyphene Screen NEGATIVE (NEGATIVE) 04/17/20 12:15 Ur Barbiturates Screen POSITIVE (NEGATIVE) H 04/17/20 12:15 Ur Tricyclics Screen NEGATIVE (NEGATIVE) 04/17/20 12:15 Ur Phencyclidine Scrn NEGATIVE (NEGATIVE) 04/17/20 12:15 Ur Amphetamine Screen NEGATIVE (NEGATIVE) 04/17/20 12:15 U Methamphetamines Scrn NEGATIVE (NEGATIVE) 04/17/20 12:15 U Benzodiazepines Scrn NEGATIVE (NEGATIVE) 04/17/20 12:15 Urine Cocaine Screen NEGATIVE (NEGATIVE) 04/17/20 12:15 U Cannabinoids Screen NEGATIVE (NEGATIVE) 04/17/20 12:15 Ethyl Alcohol < 5.0 mg/dL 04/17/20 10:45
[2020-04-19] MEDS: SACCHAROMYCES BOULARDII 250 MG CAPSULE PO SCH (17:22)
[2020-04-19] MEDS: metroNIDAZOLE 500 MG/100 ML 500 MG/100 ML BAG IV SCH (20:39)
[2020-04-19] MEDS: VANCOMYCIN 125 MG CAPSULE PO SCH (20:40)
[2020-04-19] MEDS: traZODone 50 MG TABLET PO SCH (20:40)
[2020-04-19] MEDS: SODIUM CHLORIDE FLUSH 0.9% 10 ML SYRINGE IVP PRN ×4 (20:40→23:40)
[2020-04-19] MEDS: MELATONIN 9 MG PO SCH (20:41)
[2020-04-20] MEDS ORDERED: POTASSIUM CHLOR 20 MEQ/100 ML 20 MEQ/100 ML BAG IV ONE ×3 (01:00→08:00)
[2020-04-20] MEDS: SODIUM CHLORIDE FLUSH 0.9% 10 ML SYRINGE IVP SCH ×3 (01:00→17:12)
[2020-04-20] MEDS: metroNIDAZOLE 500 MG/100 ML 500 MG/100 ML BAG IV SCH (04:36)
[2020-04-20] MEDS: SODIUM CHLORIDE FLUSH 0.9% 10 ML SYRINGE IVP PRN ×2 (05:15→06:16)
[2020-04-20 05:55] LABS: BASOPHILS % (AUTO) 0.6 %; EOSINOPHILS % (AUTO) 3.3 %; HGB - HEMOGLOBIN 10.4 g/dL (14.0-18.0); LYMPHOCYTES % (AUTO) 16.4 %; MEAN CORPUSCULAR HEMOGLOBIN 32.5 pg (27.0-31.0); MEAN CORPUSCULAR HGB CONC 32.9 g/dL (32.0-36.0); MEAN CORPUSCULAR VOLUME 98.8 fL (80.0-94.0); MEAN PLATELET VOLUME 9.4 fL (7.4-11.4); NEUTROPHILS % (AUTO) 56.4 %; PLT - PLATELET COUNT 112 10^3/uL (130-450); RED CELL DISTRIBUTION WIDTH 19.3 % (12.0-15.0); WHITE BLOOD COUNT 9.5 x10^3/uL (4.8-10.8)
[2020-04-20 06:01] LABS: BAND NEUTROPHILS % (MANUAL) 0 %
[2020-04-20 06:06] LABS: ALBUMIN 2.5 g/dL (3.2-5.5); ALBUMIN/GLOBULIN RATIO 0.7 (1.0-2.2); BILIRUBIN,TOTAL 5.8 mg/dL (0.2-1.0); CREATININE 0.5 mg/dL (0.6-1.2); MAGNESIUM 1.8 mg/dL (1.7-2.8); PHOSPHORUS 1.9 mg/dL (2.5-4.6); TOTAL PROTEIN 6.2 g/dL (6.7-8.2)
[2020-04-20 06:13] LABS: VBG PH 7.427 (7.31-7.41)
[2020-04-20] MEDS: LACTULOSE 10 GM /15 ML UDC PO SCH (06:15)
[2020-04-20 06:16] LABS: ABNORMAL LYMPHS % (MANUAL) 1 %; EOSINOPHILS # (MANUAL) 0.5 10^3/uL (0-0.7); LYMPHOCYTES # (MANUAL) 1.7 10^3/uL (1.5-3.5); LYMPHOCYTES % (MANUAL) 17 %; MONOCYTES # (MANUAL) 1.8 10^3/uL (0.0-1.0)
[2020-04-20 06:17] LABS: DIFFERENTIAL COMMENT MANUAL DIFFERENTIAL; PLATELET ESTIMATE, MANUAL DECREASED (<130,000) (NORMAL); PLATELET MORPHOLOGY NORMAL APPEARANCE (NORMAL)
--- NOTE | 2020-04-20 07:57 | PROVIDER PROGRESS NOTE ---
Subjective - Prog Note Date Prog Note Date: 04/20/20 - Subjective Pt reports feeling: Improved Subjective: He reports feeling much better today. He was able to ambulate a little bit in his room yesterday. Reports no chest pain. He does feel short of breath at times. He feels his abdomen is quite distended. He continues to have a significant amount of diarrhea and he feels that he is having by movement every hour. He has had at least 8 bowel movements since yesterday evening. Current Medications - Current Medications Current Medications: Active Medications Diazepam (Valium) 5 mg PO BID PRN PRN Reason: Anxiety Last Admin: 04/19/20 14:22 Dose: 5 mg Fluoxetine HCl (Prozac) 40 mg PO DAILY [facility] Last Admin: 04/20/20 08:26 Dose: 40 mg Lorazepam (Ativan) 1 mg PO Q1H PRN; Protocol PRN Reason: CIWA > 8 Non-Formulary Medication (Melatonin [Melatonin]) 9 mg PO QPM [facility] Last Admin: 04/19/20 20:41 Dose: Not Given Non-Formulary Medication (Naltrexone Hcl [Naltrexone Hcl]) 50 mg PO DAILY [facility] Last Admin: 04/19/20 08:12 Dose: Not Given Potassium Chloride (K-Dur) 20 meq PO TIDWM [facility] Last Admin: 04/20/20 08:25 Dose: 20 meq Multivit/Folic Acid/Iron (Trinatal Rx 1) 1 tab PO DAILY [facility] Last Admin: 04/20/20 08:27 Dose: 1 tab Rifaximin (Xifaxan) 550 mg PO BID [facility] Last Admin: 04/20/20 08:27 Dose: 550 mg Saccharomyces Boulardii (Florastor) 500 mg PO BIDWM [facility] Last Admin: 04/20/20 08:25 Dose: 500 mg Sodium Chloride (Normal Saline Flush 0.9%) 10 ml IVP PRN PRN PRN Reason: NEEDED PER PROVIDER ORDERS Last Admin: 04/20/20 06:16 Dose: 10 ml Sodium Chloride (Normal Saline Flush 0.9%) 10 ml IVP 0100,0900,1700 [facility] Last Admin: 04/20/20 09:08 Dose: 10 ml Spironolactone (Aldactone) 25 mg PO DAILY [facility] Last Admin: 04/20/20 08:27 Dose: 25 mg Thiamine HCl (Vitamin B-1) 100 mg PO DAILY [facility] Last Admin: 04/20/20 09:07 Dose: 100 mg Trazodone HCl (Desyrel) 50 mg PO QPM [facility] Last Admin: 04/19/20 20:40 Dose: 50 mg Vancomycin HCl (Vancocin) 125 mg PO QID [facility] Last Admin: 04/20/20 08:27 Dose: 125 mg Naltrexone HCl 50 mg PO DAILY 12/25/19 Melatonin 9 mg PO QPM 02/15/20 FLUoxetine [PROzac] 40 mg PO DAILY 04/17/20 Losartan [Cozaar] 25 mg PO DAILY 04/17/20 traZODone [Desyrel] 50 mg PO QPM 04/17/20 Objective - Vital Signs/Intake & Output Reviewed Vital Signs: Yes Vital Signs: Vital Signs Temp Pulse Resp BP Pulse Ox 04/20/20 07:00 91 16 136/70 H 97 04/20/20 06:15 91 16 122/78 99 04/20/20 05:00 87 16 148/82 H 97 04/20/20 04:34 36.8 C 80 11 L 134/88 H 98 Intake & Output: Intake & Output 04/17/20 04/18/20 04/19/20 04/20/20 23:59 23:59 23:59 23:59 Intake Total 2443.533 3418.533 1731 750 Output Total 0 Balance 2443.533 3418.533 1731 750 - Objective General Appearance: positive: No acute distress, Alert Eyes Bilateral: positive: Normal inspection. negative: No scleral icterus ENT: positive: ENT inspection nml Neck: positive: Nml inspection Respiratory: positive: No respiratory distress. negative: Wheezes, Rales Cardiovascular: positive: Regular rate & rhythm, No murmur. negative: Tachycardia, Bradycardia Abdomen: positive: Nml bowel sounds, Tenderness (Mild diffuse tenderness). negative: Non-tender, No distention ([place]od[place] is distended), Guarding, Rebound Skin: positive: Warm, Dry Extremities: positive: Full ROM, Pedal edema (Trace pitting edema in bilateral lower extremities) Neurologic/Psychiatric: positive: Oriented x3, Motor nml. negative: Disoriented to person, Disoriented to place, Disoriented to time - Lab Results Fish Bones: 04/20/20 05:25 04/20/20 05:25 Other Labs: Lab Results x24hrs 04/20/20 04/20/20 04/20/20 Range/Units 05:25 05:25 05:25 WBC 9.5 (4.8-10.8) x10^3/uL RBC 3.20 L (4.70-6.10) 10^6/uL Hgb 10.4 L (14.0-18.0) g/dL Hct 31.6 L (42.0-52.0) % MCV 98.8 H (80.0-94.0) fL MCH 32.5 H (27.0-31.0) pg MCHC 32.9 (32.0-36.0) g/dL RDW 19.3 H (12.0-15.0) % Plt Count 112 L (130-450) 10^3/uL MPV 9.4 (7.4-11.4) fL Neut # (Auto) Not Reportable Lymph # (Auto) Not Reportable [place] # (Auto) Not Reportable Eos # (Auto) Not Reportable Baso # (Auto) Not Reportable Absolute Nucleated RBC Not Reportable Total Counted 100 Band Neuts % (Manual) 0 (0 - 10) % Abnorm Lymph % (Manual) 1 % Nucleated RBC % Not Reportable Neutrophils # (Manual) 5.5 (1.5-6.6) 10^3/uL Lymphocytes # (Manual) 1.7 (1.5-3.5) 10^3/uL Monocytes # (Manual) 1.8 H (0.0-1.0) 10^3/uL Eosinophils # (Manual) 0.5 (0-0.7) 10^3/uL Basophils # (Manual) 0.0 (0-0.1) 10^3/uL Differential Comment MANUAL DIFFERENTIAL WBC Morphology NORMAL APPEARANCE (NORMAL) Platelet Estimate DECREASED (<130,000) (NORMAL) Platelet Morphology NORMAL APPEARANCE (NORMAL) RBC Morph Micro Appear 2+ HYPOCHROMASIA (NORMAL) VBG pH 7.427 H (7.31-7.41) VBG pCO2 48.0 (41-51) mmHg VBG pO2 67.0 H (25-47) mmHg VBG HCO3 31.7 H (23-28) mmol/L VBG Total CO2 33.0 H (24-29) mmol/L VBG O2 Saturation 93.0 H (60-80) % VBG Base Excess 7.0 H (-2 - +2) mmol/L Sodium (135-145) mmol/L Potassium (3.5-5.0) mmol/L Chloride (101-111) mmol/L Carbon Dioxide (21-32) mmol/L Anion Gap (6-13) BUN (6-20) mg/dL Creatinine (0.6-1.2) mg/dL Estimated GFR (MDRD) (>89) Glucose (70-100) mg/dL Calcium (8.5-10.3) mg/dL Phosphorus (2.5-4.6) mg/dL Magnesium (1.7-2.8) mg/dL Total Bilirubin (0.2-1.0) mg/dL AST (10-42) IU/L ALT (10-60) IU/L Alkaline Phosphatase (42-121) IU/L Ammonia 121.9 H* (7-35) umol/L Total Protein (6.7-8.2) g/dL Albumin (3.2-5.5) g/dL Globulin (2.1-4.2) g/dL Albumin/Globulin Ratio (1.0-2.2) Lipase (22-51) U/L Urine Color Urine Clarity (CLEAR) Urine pH (5.0-7.5) PH Ur Specific [place] (1.002-1.030) Urine Protein (NEGATIVE) mg/dL Urine Glucose (UA) (NEGATIVE) mg/dL Urine Ketones (NEGATIVE) mg/dL Urine Occult Blood (NEGATIVE) Urine Nitrite (NEGATIVE) Urine Bilirubin (NEGATIVE) Urine Urobilinogen (NORMAL) E.U./dL Ur Leukocyte Esterase (NEGATIVE) Ur Random Chloride mmol/L Urine Creatinine mg/dL Urine Sodium mmol/L Urine Potassium mmol/L Nasal Screen MRSA (PCR) (NEGATIVE) 04/20/20 04/19/20 04/19/20 Range/Units 05:25 22:41 16:25 WBC (4.8-10.8) x10^3/uL RBC (4.70-6.10) 10^6/uL Hgb (14.0-18.0) g/dL Hct (42.0-52.0) % MCV (80.0-94.0) fL MCH (27.0-31.0) pg MCHC (32.0-36.0) g/dL RDW (12.0-15.0) % Plt Count (130-450) 10^3/uL MPV (7.4-11.4) fL Neut # (Auto) Lymph # (Auto) [place] # (Auto) Eos # (Auto) Baso # (Auto) Absolute Nucleated RBC Total Counted Band Neuts % (Manual) (0 - 10) % Abnorm Lymph % (Manual) % Nucleated RBC % Neutrophils # (Manual) (1.5-6.6) 10^3/uL Lymphocytes # (Manual) (1.5-3.5) 10^3/uL Monocytes # (Manual) (0.0-1.0) 10^3/uL Eosinophils # (Manual) (0-0.7) 10^3/uL Basophils # (Manual) (0-0.1) 10^3/uL Differential Comment WBC Morphology (NORMAL) Platelet Estimate (NORMAL) Platelet Morphology (NORMAL) RBC Morph Micro Appear (NORMAL) VBG pH (7.31-7.41) VBG pCO2 (41-51) mmHg VBG pO2 (25-47) mmHg VBG HCO3 (23-28) mmol/L VBG Total CO2 (24-29) mmol/L VBG O2 Saturation (60-80) % VBG Base Excess (-2 - +2) mmol/L Sodium 137 (135-145) mmol/L Potassium 3.0 L 2.8 L 2.8 L (3.5-5.0) mmol/L Chloride 100 L (101-111) mmol/L Carbon Dioxide 29 (21-32) mmol/L Anion Gap 8.0 (6-13) BUN 5 L (6-20) mg/dL Creatinine 0.5 L (0.6-1.2) mg/dL Estimated GFR (MDRD) 185 (>89) Glucose 147 H (70-100) mg/dL Calcium 8.0 L (8.5-10.3) mg/dL Phosphorus 1.9 L (2.5-4.6) mg/dL Magnesium 1.8 (1.7-2.8) mg/dL Total Bilirubin 5.8 H (0.2-1.0) mg/dL AST 101 H (10-42) IU/L ALT 61 H (10-60) IU/L Alkaline Phosphatase 173 H (42-121) IU/L Ammonia (7-35) umol/L Total Protein 6.2 L (6.7-8.2) g/dL Albumin 2.5 L (3.2-5.5) g/dL Globulin 3.7 (2.1-4.2) g/dL Albumin/Globulin Ratio 0.7 L (1.0-2.2) Lipase 118 H (22-51) U/L Urine Color Urine Clarity (CLEAR) Urine pH (5.0-7.5) PH Ur Specific [place] (1.002-1.030) Urine Protein (NEGATIVE) mg/dL Urine Glucose (UA) (NEGATIVE) mg/dL Urine Ketones (NEGATIVE) mg/dL Urine Occult Blood (NEGATIVE) Urine Nitrite (NEGATIVE) Urine Bilirubin (NEGATIVE) Urine Urobilinogen (NORMAL) E.U./dL Ur Leukocyte Esterase (NEGATIVE) Ur Random Chloride mmol/L Urine Creatinine mg/dL Urine Sodium mmol/L Urine Potassium mmol/L Nasal Screen MRSA (PCR) (NEGATIVE) 04/19/20 04/19/20 04/19/20 Range/Units 09:40 09:40 09:40 WBC (4.8-10.8) x10^3/uL RBC (4.70-6.10) 10^6/uL Hgb (14.0-18.0) g/dL Hct (42.0-52.0) % MCV (80.0-94.0) fL MCH (27.0-31.0) pg MCHC (32.0-36.0) g/dL RDW (12.0-15.0) % Plt Count (130-450) 10^3/uL MPV (7.4-11.4) fL Neut # (Auto) Lymph # (Auto) [place] # (Auto) Eos # (Auto) Baso # (Auto) Absolute Nucleated RBC Total Counted Band Neuts % (Manual) (0 - 10) % Abnorm Lymph % (Manual) % Nucleated RBC % Neutrophils # (Manual) (1.5-6.6) 10^3/uL Lymphocytes # (Manual) (1.5-3.5) 10^3/uL Monocytes # (Manual) (0.0-1.0) 10^3/uL Eosinophils # (Manual) (0-0.7) 10^3/uL Basophils # (Manual) (0-0.1) 10^3/uL Differential Comment WBC Morphology (NORMAL) Platelet Estimate (NORMAL) Platelet Morphology (NORMAL) RBC Morph Micro Appear (NORMAL) VBG pH (7.31-7.41) VBG pCO2 (41-51) mmHg VBG pO2 (25-47) mmHg VBG HCO3 (23-28) mmol/L VBG Total CO2 (24-29) mmol/L VBG O2 Saturation (60-80) % VBG Base Excess (-2 - +2) mmol/L Sodium (135-145) mmol/L Potassium (3.5-5.0) mmol/L Chloride (101-111) mmol/L Carbon Dioxide (21-32) mmol/L Anion Gap (6-13) BUN (6-20) mg/dL Creatinine (0.6-1.2) mg/dL Estimated GFR (MDRD) (>89) Glucose (70-100) mg/dL Calcium (8.5-10.3) mg/dL Phosphorus (2.5-4.6) mg/dL Magnesium (1.7-2.8) mg/dL Total Bilirubin (0.2-1.0) mg/dL AST (10-42) IU/L ALT (10-60) IU/L Alkaline Phosphatase (42-121) IU/L Ammonia (7-35) umol/L Total Protein (6.7-8.2) g/dL Albumin (3.2-5.5) g/dL Globulin (2.1-4.2) g/dL Albumin/Globulin Ratio (1.0-2.2) Lipase (22-51) U/L Urine Color BROWN Urine Clarity CLEAR (CLEAR) Urine pH 7.0 (5.0-7.5) PH Ur Specific [place] 1.020 (1.002-1.030) Urine Protein NEGATIVE (NEGATIVE) mg/dL Urine Glucose (UA) NEGATIVE (NEGATIVE) mg/dL Urine Ketones TRACE (NEGATIVE) mg/dL Urine Occult Blood TRACE-LYSE (NEGATIVE) Urine Nitrite POSITIVE H (NEGATIVE) Urine Bilirubin LARGE H (NEGATIVE) Urine Urobilinogen 0.2 (NORMAL) (NORMAL) E.U./dL Ur Leukocyte Esterase NEGATIVE (NEGATIVE) Ur Random Chloride mmol/L Urine Creatinine 176.2 mg/dL Urine Sodium mmol/L Urine Potassium mmol/L Nasal Screen MRSA (PCR) NEGATIVE (NEGATIVE) 04/19/20 04/19/20 Range/Units 09:40 04:45 WBC (4.8-10.8) x10^3/uL RBC (4.70-6.10) 10^6/uL Hgb (14.0-18.0) g/dL Hct (42.0-52.0) % MCV (80.0-94.0) fL MCH (27.0-31.0) pg MCHC (32.0-36.0) g/dL RDW (12.0-15.0) % Plt Count (130-450) 10^3/uL MPV (7.4-11.4) fL Neut # (Auto) Lymph # (Auto) [place] # (Auto) Eos # (Auto) Baso # (Auto) Absolute Nucleated RBC Total Counted Band Neuts % (Manual) (0 - 10) % Abnorm Lymph % (Manual) % Nucleated RBC % Neutrophils # (Manual) (1.5-6.6) 10^3/uL Lymphocytes # (Manual) (1.5-3.5) 10^3/uL Monocytes # (Manual) (0.0-1.0) 10^3/uL Eosinophils # (Manual) (0-0.7) 10^3/uL Basophils # (Manual) (0-0.1) 10^3/uL Differential Comment WBC Morphology (NORMAL) Platelet Estimate (NORMAL) Platelet Morphology (NORMAL) RBC Morph Micro Appear (NORMAL) VBG pH (7.31-7.41) VBG pCO2 (41-51) mmHg VBG pO2 (25-47) mmHg VBG HCO3 (23-28) mmol/L VBG Total CO2 (24-29) mmol/L VBG O2 Saturation (60-80) % VBG Base Excess (-2 - +2) mmol/L Sodium (135-145) mmol/L Potassium (3.5-5.0) mmol/L Chloride (101-111) mmol/L Carbon Dioxide (21-32) mmol/L Anion Gap (6-13) BUN (6-20) mg/dL Creatinine (0.6-1.2) mg/dL Estimated GFR (MDRD) (>89) Glucose (70-100) mg/dL Calcium (8.5-10.3) mg/dL Phosphorus (2.5-4.6) mg/dL Magnesium (1.7-2.8) mg/dL Total Bilirubin (0.2-1.0) mg/dL AST (10-42) IU/L ALT (10-60) IU/L Alkaline Phosphatase (42-121) IU/L Ammonia (7-35) umol/L Total Protein (6.7-8.2) g/dL Albumin (3.2-5.5) g/dL Globulin (2.1-4.2) g/dL Albumin/Globulin Ratio (1.0-2.2) Lipase 96 H (22-51) U/L Urine Color Urine Clarity (CLEAR) Urine pH (5.0-7.5) PH Ur Specific [place] (1.002-1.030) Urine Protein (NEGATIVE) mg/dL Urine Glucose (UA) (NEGATIVE) mg/dL Urine Ketones (NEGATIVE) mg/dL Urine Occult Blood (NEGATIVE) Urine Nitrite (NEGATIVE) Urine Bilirubin (NEGATIVE) Urine Urobilinogen (NORMAL) E.U./dL Ur Leukocyte Esterase (NEGATIVE) Ur Random Chloride 83 mmol/L Urine Creatinine mg/dL Urine Sodium < 12.0 mmol/L Urine Potassium 5.8 mmol/L Nasal Screen MRSA (PCR) (NEGATIVE) Assessment/Plan - Problem List (1) C. difficile colitis Impression: This is his first episode of C. difficile. CT on admission showed evidence of colitis. He continues to have significant amounts of diarrhea. He has been started on oral vancomycin with today being day 1. We will hold his lactulose given the amount of diarrhea he is having. We will continue to monitor for signs of worsening infection as he may potentially need Flagyl IV as well in addition to oral vancomycin if there is evidence of fulminant disease. (2) Hypokalemia Impression: This is likely multifactorial. Suspect this is compounded by GI losses but I do wonder if he has underlying Arelis syndrome as he reports a history of low potassium and hypertension diagnosed at a young age. He is adopted and is unaware of his family history. Aldosterone activity has been ordered and is pending. We will continue with potassium 20 mEq orally 3 times daily and IV supplementation. As his potassium has improved to 3.0 today, we will hope to hold off on IV supplementation tomorrow and continue with oral supplementation. His potassium will need to be monitored to ensure that it does significantly decrease again. (3) Liver cirrhosis, alcoholic Impression: There is evidence of cirrhosis given the elevated ammonia, thrombocytopenia, coagulopathy, ascites. Secondary to alcohol use. There has been no evidence of withdrawal during his hospitalization. His MELD score is greater than 22. His ammonia is elevated today at 122 but there is no evidence of hepatic encephalopathy. We will hold lactulose given the diarrhea. He has been started on rifaximin today given his elevated ammonia. I informed him that he will need to follow-up with a nuclear unit operator when he moves back to [place]. Qualifiers: Ascites presence: with ascites Qualified Code(s): K70.31 - Alcoholic cirrhosis of liver with ascites (4) Ascites due to alcoholic cirrhosis Impression: There is evidence of ascites secondary to his liver disease. We will consider a paracentesis prior to discharge if abdomen becomes more distended. We will continue with spironolactone. He will not be able to tolerate furosemide due to his hyperkalemia. (5) HTN (hypertension) Impression: He has been hypertensive systolic in the 130s to 140s. We will resume his home losartan. (6) Alcoholism Impression: This is the cause of his liver disease. We will continue with thiamine and multivitamin. He has not had evidence of withdrawal. We discussed the importance of alcohol cessation. (7) Prolonged QT interval Impression: This was likely secondary to his hypokalemia. His QTC has improved to 409 yesterday based off of EKG.
[2020-04-20] MEDS ORDERED: NEUTRA-PHOS 250 MG TABLET PO SCH (08:00)
[2020-04-20] MEDS: POTASSIUM CHLORIDE 20 MEQ TABLET PO SCH ×3 (08:25→17:12)
[2020-04-20] MEDS: SACCHAROMYCES BOULARDII 250 MG CAPSULE PO SCH ×2 (08:25→17:12)
[2020-04-20] MEDS: FLUoxetine 10 MG CAPSULE PO SCH (08:26)
[2020-04-20] MEDS: PRENATAL VITAMIN TABLET PO SCH (08:27)
[2020-04-20] MEDS: SPIRONOLACTONE 25 MG TABLET PO SCH (08:27)
[2020-04-20] MEDS: rifAXIMin 550 MG TABLET PO SCH ×2 (08:27→21:38)
[2020-04-20] MEDS: VANCOMYCIN 125 MG CAPSULE PO SCH ×4 (08:27→21:38)
[2020-04-20] MEDS: THIAMINE 100 MG TABLET PO SCH (09:07)
[2020-04-20] MEDS: diazePAM 5 MG TABLET PO PRN (10:07)
[2020-04-20] MEDS: NALTREXONE HCL 50 MG PO SCH (10:09)
[2020-04-20] MEDS: LORazepam 0.5 MG TABLET PO PRN (16:00)
[2020-04-20 16:43] LABS: BUN - BLOOD UREA NITROGEN < 5 mg/dL (6-20); CALCIUM 8.1 mg/dL (8.5-10.3); CARBON DIOXIDE - CO2 32 mmol/L (21-32); CHLORIDE 98 mmol/L (101-111); CREATININE 0.6 mg/dL (0.6-1.2); GLUCOSE 121 mg/dL (70-100); SODIUM 138 mmol/L (135-145)
[2020-04-20] MEDS: ZOLPIDEM 5 MG TABLET PO PRN (21:38)
[2020-04-20] MEDS: MELATONIN 9 MG PO SCH (21:39)
[2020-04-21 05:58] LABS: BASOPHILS # (AUTO) 0.1 10^3/uL (0.0-0.1); BASOPHILS % (AUTO) 0.6 %; EOSINOPHILS # (AUTO) 0.3 10^3/uL (0.0-0.7); EOSINOPHILS % (AUTO) 2.4 %; HGB - HEMOGLOBIN 10.7 g/dL (14.0-18.0); LYMPHOCYTES # (AUTO) 1.7 10^3/uL (1.5-3.5); LYMPHOCYTES % (AUTO) 16.7 %; MEAN CORPUSCULAR HEMOGLOBIN 32.7 pg (27.0-31.0); MEAN CORPUSCULAR HGB CONC 33.1 g/dL (32.0-36.0); MEAN CORPUSCULAR VOLUME 98.8 fL (80.0-94.0); MEAN PLATELET VOLUME 9.2 fL (7.4-11.4); MONOCYTES # (AUTO) 2.3 10^3/uL (0.0-1.0); MONOCYTES % (AUTO) 22.5 %; NEUTROPHILS # (AUTO) 5.9 10^3/uL (1.5-6.6); NEUTROPHILS % (AUTO) 56.6 %; PLT - PLATELET COUNT 122 10^3/uL (130-450); RED BLOOD COUNT 3.27 10^6/uL (4.70-6.10); RED CELL DISTRIBUTION WIDTH 19.1 % (12.0-15.0); WHITE BLOOD COUNT 10.4 x10^3/uL (4.8-10.8)
[2020-04-21] MEDS: SODIUM CHLORIDE FLUSH 0.9% 10 ML SYRINGE IVP SCH ×2 (06:05→16:24)
[2020-04-21 06:16] LABS: ALBUMIN 2.3 g/dL (3.2-5.5); ALKALINE PHOSPHATASE 175 IU/L (42-121); ALT ALANINE AMINOTRANSFERASE 56 IU/L (10-60); AST ASPARTATE AMINOTRANSFERASE 92 IU/L (10-42); BILIRUBIN,DIRECT 2.6 mg/dL (0.1-0.5); BILIRUBIN,TOTAL 5.8 mg/dL (0.2-1.0); BUN - BLOOD UREA NITROGEN < 5 mg/dL (6-20); CALCIUM 8.1 mg/dL (8.5-10.3); CARBON DIOXIDE - CO2 31 mmol/L (21-32); CHLORIDE 102 mmol/L (101-111); CREATININE 0.5 mg/dL (0.6-1.2); GLUCOSE 122 mg/dL (70-100); MAGNESIUM 1.7 mg/dL (1.7-2.8); PHOSPHORUS 2.7 mg/dL (2.5-4.6); SODIUM 139 mmol/L (135-145); TOTAL PROTEIN 6.1 g/dL (6.7-8.2)
[2020-04-21 06:25] LABS: DIFFERENTIAL COMMENT MANUAL=AUTO DIFF; PLATELET ESTIMATE, MANUAL DECREASED (<130,000) (NORMAL)
[2020-04-21] MEDS: PRENATAL VITAMIN TABLET PO SCH (08:34)
[2020-04-21] MEDS: rifAXIMin 550 MG TABLET PO SCH ×2 (08:34→21:01)
[2020-04-21] MEDS: THIAMINE 100 MG TABLET PO SCH (08:34)
[2020-04-21] MEDS: SACCHAROMYCES BOULARDII 250 MG CAPSULE PO SCH ×2 (08:34→16:23)
[2020-04-21] MEDS: FLUoxetine 10 MG CAPSULE PO SCH (08:34)
[2020-04-21] MEDS: SPIRONOLACTONE 25 MG TABLET PO SCH (08:34)
[2020-04-21] MEDS: VANCOMYCIN 125 MG CAPSULE PO SCH ×4 (08:34→21:01)
[2020-04-21] MEDS: POTASSIUM CHLORIDE 20 MEQ TABLET PO SCH ×3 (08:34→16:23)
[2020-04-21] MEDS: LOSARTAN 50 MG TABLET PO SCH (08:34)
[2020-04-21] MEDS: SODIUM CHLORIDE FLUSH 0.9% 10 ML SYRINGE IVP PRN (08:35)
--- NOTE | 2020-04-21 08:49 | PROVIDER PROGRESS NOTE ---
Subjective - Prog Note Date Prog Note Date: 04/21/20 - Subjective Subjective: He reports feeling better today. Still has some dyspnea but feels as also improved. He continues complain of abdominal distention. He also had abdominal pain yesterday evening but this has also improved this morning. He had 12 bowel movements yesterday with a moderate amount of stool each time. He reports that he has ready had 3 bowel movements this morning. His stool is predominately liquid. Current Medications - Current Medications Current Medications: Active Medications Fluoxetine HCl (Prozac) 40 mg PO DAILY [facility] Last Admin: 04/21/20 08:34 Dose: 40 mg Lorazepam (Ativan) 1 mg PO Q1H PRN; Protocol PRN Reason: CIWA > 8 Lorazepam (Ativan) 0.5 mg PO Q6H PRN PRN Reason: Anxiety Last Admin: 04/20/20 16:00 Dose: 0.5 mg Losartan Potassium (Cozaar) 50 mg PO DAILY [facility] Last Admin: 04/21/20 08:34 Dose: 50 mg Non-Formulary Medication (Melatonin [Melatonin]) 9 mg PO QPM [facility] Last Admin: 04/20/20 21:39 Dose: Not Given Non-Formulary Medication (Naltrexone Hcl [Naltrexone Hcl]) 50 mg PO DAILY [facility] Last Admin: 04/20/20 10:09 Dose: Not Given Potassium Chloride (K-Dur) 20 meq PO TIDWM [facility] Last Admin: 04/21/20 08:34 Dose: 20 meq Multivit/Folic Acid/Iron (Trinatal Rx 1) 1 tab PO DAILY [facility] Last Admin: 04/21/20 08:34 Dose: 1 tab Rifaximin (Xifaxan) 550 mg PO BID [facility] Last Admin: 04/21/20 08:34 Dose: 550 mg Saccharomyces Boulardii (Florastor) 500 mg PO BIDWM [facility] Last Admin: 04/21/20 08:34 Dose: 500 mg Sodium Chloride (Normal Saline Flush 0.9%) 10 ml IVP PRN PRN PRN Reason: NEEDED PER PROVIDER ORDERS Last Admin: 04/21/20 08:35 Dose: 10 ml Sodium Chloride (Normal Saline Flush 0.9%) 10 ml IVP 0100,0900,1700 [facility] Last Admin: 04/21/20 06:05 Dose: 10 ml Spironolactone (Aldactone) 25 mg PO DAILY [facility] Last Admin: 04/21/20 08:34 Dose: 25 mg Thiamine HCl (Vitamin B-1) 100 mg PO DAILY [facility] Last Admin: 04/21/20 08:34 Dose: 100 mg Vancomycin HCl (Vancocin) 125 mg PO QID [facility] Last Admin: 04/21/20 08:34 Dose: 125 mg Zolpidem Tartrate (Ambien) 5 mg PO QPM PRN PRN Reason: Insomnia Last Admin: 04/20/20 21:38 Dose: 5 mg Naltrexone HCl 50 mg PO DAILY 12/25/19 Melatonin 9 mg PO QPM 02/15/20 FLUoxetine [PROzac] 40 mg PO DAILY 04/17/20 Losartan [Cozaar] 25 mg PO DAILY 04/17/20 traZODone [Desyrel] 50 mg PO QPM 04/17/20 Objective - Vital Signs/Intake & Output Reviewed Vital Signs: Yes Vital Signs: Vital Signs x48h Temp Pulse Pulse Resp BP Pulse Ox 04/21/20 07:57 36.4 C L 96 16 138/83 H 99 04/21/20 03:25 36.6 C 86 20 146/85 H 98 04/21/20 01:00 36.9 C 100 18 145/95 H 95 Intake & Output: Intake & Output 04/18/20 04/19/20 04/20/20 04/21/20 23:59 23:59 23:59 23:59 Intake Total 3418.533 1731 2491 240 Output Total 400 Balance 3418.533 1731 2091 240 - Objective General Appearance: positive: No acute distress, Alert Eyes Bilateral: positive: Normal inspection. negative: No scleral icterus ENT: positive: ENT inspection nml Neck: positive: Nml inspection Respiratory: positive: No respiratory distress. negative: Wheezes, Rales, Rh onchi Cardiovascular: positive: Regular rate & rhythm, No murmur. negative: Tachycardia Abdomen: positive: Non-tender. negative: No distention (Distended), Tenderness, Guarding, Rebound Skin: positive: Warm, Dry Extremities: positive: Pedal edema (+1 pitting edema in bilateral lower extremities) Neurologic/Psychiatric: positive: Oriented x3, Motor nml. negative: Disoriented to person, Disoriented to place, Disoriented to time - Lab Results Fish Bones: 04/21/20 05:30 04/21/20 05:30 Other Labs: Lab Results x24hrs 04/21/20 04/21/20 04/21/20 Range/Units 05:30 05:30 05:30 WBC 10.4 (4.8-10.8) x10^3/uL RBC 3.27 L (4.70-6.10) 10^6/uL Hgb 10.7 L (14.0-18.0) g/dL Hct 32.3 L (42.0-52.0) % MCV 98.8 H (80.0-94.0) fL MCH 32.7 H (27.0-31.0) pg MCHC 33.1 (32.0-36.0) g/dL RDW 19.1 H (12.0-15.0) % Plt Count 122 L (130-450) 10^3/uL MPV 9.2 (7.4-11.4) fL Neut # (Auto) 5.9 (1.5-6.6) 10^3/uL Lymph # (Auto) 1.7 (1.5-3.5) 10^3/uL [place] # (Auto) 2.3 H (0.0-1.0) 10^3/uL Eos # (Auto) 0.3 (0.0-0.7) 10^3/uL Baso # (Auto) 0.1 (0.0-0.1) 10^3/uL Absolute Nucleated RBC 0.00 x10^3/uL Band Neuts % (Manual) Not Reportable Abnorm Lymph % (Manual) Not Reportable Nucleated RBC % 0.0 /100WBC Neutrophils # (Manual) Not Reportable Lymphocytes # (Manual) Not Reportable Monocytes # (Manual) Not Reportable Eosinophils # (Manual) Not Reportable Basophils # (Manual) Not Reportable Differential Comment MANUAL=AUTO DIFF Platelet Estimate DECREASED (<130,000) (NORMAL) RBC Morph Micro Appear 1+ OVALOCYTES (NORMAL) Sodium 139 (135-145) mmol/L Potassium 3.4 L (3.5-5.0) mmol/L Chloride 102 (101-111) mmol/L Carbon Dioxide 31 (21-32) mmol/L Anion Gap 6.0 (6-13) BUN < 5 L (6-20) mg/dL Creatinine 0.5 L (0.6-1.2) mg/dL Estimated GFR (MDRD) 185 (>89) Glucose 122 H (70-100) mg/dL Calcium 8.1 L (8.5-10.3) mg/dL Phosphorus 2.7 (2.5-4.6) mg/dL Magnesium 1.7 (1.7-2.8) mg/dL Total Bilirubin 5.8 H (0.2-1.0) mg/dL Direct Bilirubin 2.6 H (0.1-0.5) mg/dL AST 92 H (10-42) IU/L ALT 56 (10-60) IU/L Alkaline Phosphatase 175 H (42-121) IU/L Ammonia 90.4 H* (7-35) umol/L Total Protein 6.1 L (6.7-8.2) g/dL Albumin 2.3 L (3.2-5.5) g/dL Globulin 3.8 (2.1-4.2) g/dL 04/20/20 Range/Units 16:28 WBC (4.8-10.8) x10^3/uL RBC (4.70-6.10) 10^6/uL Hgb (14.0-18.0) g/dL Hct (42.0-52.0) % MCV (80.0-94.0) fL MCH (27.0-31.0) pg MCHC (32.0-36.0) g/dL RDW (12.0-15.0) % Plt Count (130-450) 10^3/uL MPV (7.4-11.4) fL Neut # (Auto) (1.5-6.6) 10^3/uL Lymph # (Auto) (1.5-3.5) 10^3/uL [place] # (Auto) (0.0-1.0) 10^3/uL Eos # (Auto) (0.0-0.7) 10^3/uL Baso # (Auto) (0.0-0.1) 10^3/uL Absolute Nucleated RBC x10^3/uL Band Neuts % (Manual) Abnorm Lymph % (Manual) Nucleated RBC % /100WBC Neutrophils # (Manual) Lymphocytes # (Manual) Monocytes # (Manual) Eosinophils # (Manual) Basophils # (Manual) Differential Comment Platelet Estimate (NORMAL) RBC Morph Micro Appear (NORMAL) Sodium 138 (135-145) mmol/L Potassium 3.0 L (3.5-5.0) mmol/L Chloride 98 L (101-111) mmol/L Carbon Dioxide 32 (21-32) mmol/L Anion Gap 8.0 (6-13) BUN < 5 L (6-20) mg/dL Creatinine 0.6 (0.6-1.2) mg/dL Estimated GFR (MDRD) 150 (>89) Glucose 121 H (70-100) mg/dL Calcium 8.1 L (8.5-10.3) mg/dL Phosphorus (2.5-4.6) mg/dL Magnesium (1.7-2.8) mg/dL Total Bilirubin (0.2-1.0) mg/dL Direct Bilirubin (0.1-0.5) mg/dL AST (10-42) IU/L ALT (10-60) IU/L Alkaline Phosphatase (42-121) IU/L Ammonia (7-35) umol/L Total Protein (6.7-8.2) g/dL Albumin (3.2-5.5) g/dL Globulin (2.1-4.2) g/dL ABX Reporting Has patient been on IV antibiotics over the past 48 hours?: No Assessment/Plan - Problem List (1) C. difficile colitis Impression: Continues to have over 10 liquid bowel movements a day. CT on admission was consistent with colitis. His white count has normalized and he has been afebrile. We will keep him on oral vancomycin with today being day 2. Given the large amount of diarrhea he continues to have, we will keep him hospitalized until the volume of diarrhea decreases. We will hold off on Flagyl IV as there is no evidence of fulminant disease at this time. (2) Hypokalemia Impression: This continues to improve. His potassium was 3.4 this morning. The concern at this may be due to GI losses as well as possible Arelis's syndrome. Continue with oral potassium supplementation. Renin and aldosterone have been checked a nd these results are pending. (3) Liver cirrhosis, alcoholic Impression: He has evidence of cirrhosis with failure given his coagulopathy, thrombocytopenia, ascites, elevated ammonia. His meld score is 22. He will need outpatient follow-up with gastroenterology. We have discussed the importance of alcohol cessation. We will continue to hold lactulose given the C. difficile although this will need to be resumed once his C. difficile infection is resolved given his elevated ammonia. We will check a hepatitis panel. Qualifiers: Ascites presence: with ascites Qualified Code(s): K70.31 - Alcoholic cirrhosis of liver with ascites (4) Ascites due to alcoholic cirrhosis Impression: Imaging on admission showed moderate amount of ascites. Given his abdominal distention, will ask radiology to perform a paracentesis given he does have some dyspnea associated with the distention. We will continue him on spironolactone. We will hold off on Lasix given the hypokalemia. (5) HTN (hypertension) Impression: His blood pressure has been elevated with systolics in the 130s to 140s. We have resumed his home losartan. If his blood pressure remains elevated, we will increase the dose of his losartan. (6) Alcoholism Impression: He did not go through withdrawal during this hospitalization. We will continue him on thiamine and multivitamin. We discussed the importance of alcohol cessation given his underlying liver disease. (7) Prolonged QT interval Impression: This was secondary to hyperkalemia and has resolved.
[2020-04-21] MEDS: NALTREXONE HCL 50 MG PO SCH (09:00)
[2020-04-21] MEDS: LORazepam 0.5 MG TABLET PO PRN ×2 (10:56→16:59)
[2020-04-21 15:09] LABS: INR 2.4 (0.8-1.2)
[2020-04-21] MEDS ORDERED: CHERRY SYRUP 10 ML UDC PO ONE (15:17)
[2020-04-21] MEDS ORDERED: PHYTONADIONE 10 MG/ML AMP PO ONE (16:00)
[2020-04-21] MEDS: MELATONIN 9 MG PO SCH (21:01)
[2020-04-21] MEDS: ZOLPIDEM 5 MG TABLET PO PRN (21:01)
[2020-04-22] MEDS: SODIUM CHLORIDE FLUSH 0.9% 10 ML SYRINGE IVP SCH ×2 (00:59→08:40)
[2020-04-22] MEDS: LORazepam 0.5 MG TABLET PO PRN ×2 (00:59→08:59)
[2020-04-22] MEDS: SODIUM CHLORIDE FLUSH 0.9% 10 ML SYRINGE IVP PRN ×2 (00:59→08:40)
[2020-04-22 06:11] LABS: BASOPHILS % (AUTO) 0.6 %; EOSINOPHILS % (AUTO) 2.3 %; LYMPHOCYTES % (AUTO) 16.9 %; MEAN CORPUSCULAR HEMOGLOBIN 32.7 pg (27.0-31.0); MEAN PLATELET VOLUME 9.9 fL (7.4-11.4); MONOCYTES % (AUTO) 22.2 %; PLT - PLATELET COUNT 126 10^3/uL (130-450); RED BLOOD COUNT 3.06 10^6/uL (4.70-6.10); RED CELL DISTRIBUTION WIDTH 18.6 % (12.0-15.0); WHITE BLOOD COUNT 10.2 x10^3/uL (4.8-10.8)
[2020-04-22 06:13] LABS: ABNORMAL LYMPHS % (MANUAL) 0 %; BAND NEUTROPHILS % (MANUAL) 0 %
[2020-04-22 06:33] LABS: ALBUMIN 2.2 g/dL (3.2-5.5); ALKALINE PHOSPHATASE 160 IU/L (42-121); ALT ALANINE AMINOTRANSFERASE 53 IU/L (10-60); AST ASPARTATE AMINOTRANSFERASE 85 IU/L (10-42); BILIRUBIN,DIRECT 2.5 mg/dL (0.1-0.5); BILIRUBIN,TOTAL 5.6 mg/dL (0.2-1.0); BUN - BLOOD UREA NITROGEN < 5 mg/dL (6-20); CALCIUM 8.1 mg/dL (8.5-10.3); CARBON DIOXIDE - CO2 31 mmol/L (21-32); CHLORIDE 100 mmol/L (101-111); CREATININE 0.6 mg/dL (0.6-1.2); GLUCOSE 155 mg/dL (70-100); MAGNESIUM 1.6 mg/dL (1.7-2.8); PHOSPHORUS 2.6 mg/dL (2.5-4.6); SODIUM 138 mmol/L (135-145); TOTAL PROTEIN 6.1 g/dL (6.7-8.2)
[2020-04-22 06:41] LABS: LYMPHOCYTES # (MANUAL) 1.6 10^3/uL (1.5-3.5); LYMPHOCYTES % (MANUAL) 16 %; MONOCYTES # (MANUAL) 1.9 10^3/uL (0.0-1.0)
[2020-04-22 06:42] LABS: DIFFERENTIAL COMMENT MANUAL DIFFERENTIAL; PLATELET ESTIMATE, MANUAL DECREASED (<130,000) (NORMAL); PLATELET MORPHOLOGY NORMAL APPEARANCE (NORMAL); RBC MORPHOLOGY (MULTIPLE) 2+ HYPOCHROMASIA (NORMAL)
[2020-04-22 07:06] LABS: INR 2.4 (0.8-1.2); PT - PROTHROMBIN TIME 26.1 secs (9.9-12.6)
[2020-04-22 08:05] VITALS: BP 156/95
[2020-04-22] MEDS: rifAXIMin 550 MG TABLET PO SCH (08:39)
[2020-04-22] MEDS: FLUoxetine 10 MG CAPSULE PO SCH (08:39)
[2020-04-22] MEDS: PRENATAL VITAMIN TABLET PO SCH (08:39)
[2020-04-22] MEDS: SACCHAROMYCES BOULARDII 250 MG CAPSULE PO SCH (08:39)
[2020-04-22] MEDS: VANCOMYCIN 125 MG CAPSULE PO SCH ×2 (08:39→11:57)
[2020-04-22] MEDS: POTASSIUM CHLORIDE 20 MEQ TABLET PO SCH ×2 (08:39→11:57)
[2020-04-22] MEDS: LOSARTAN 50 MG TABLET PO SCH (08:40)
[2020-04-22] MEDS: NALTREXONE HCL 50 MG PO SCH (08:40)
[2020-04-22] MEDS: SPIRONOLACTONE 25 MG TABLET PO SCH (08:40)
[2020-04-22] MEDS: THIAMINE 100 MG TABLET PO SCH (08:40)
[2020-04-22] MEDS ORDERED: SPIRONOLACTONE 25 MG TABLET PO ONE (09:25)
[2020-04-22 12:25] LABS: HEPATITIS A IGM NON-REACTIVE (NON-REACTIVE); HEPATITIS B SURFACE ANTIGEN NON-REACTIVE (NON-REACTIVE); HEPATITIS C ANTIBODY NON-REACTIVE (NON-REACTIVE)
--- NOTE | 2020-04-22 12:36 | Discharge Plan ---
Discharge Plan Problem Reviewed?: Yes Disposition: Home, Self Care Condition: Fair Prescriptions: Lactulose 10 gm PO BID #60 bottle LORazepam [Ativan] 0.5 mg PO DAILY PRN #6 tablet PRN Reason: Anxiety Potassium Chloride [K-Dur] 20 meq PO TIDWM #90 tablet Vitamin [Trinatal Rx 1] 1 tab PO DAILY #30 tablet rifAXIMin [Xifaxan] 550 mg PO BID #18 tablet Spironolactone [Aldactone] 50 mg PO DAILY #30 tablet Thiamine [Vitamin B-1] 100 mg PO DAILY #30 tablet traZODone [Desyrel] 50 mg PO QPM PRN #6 tablet PRN Reason: Insomnia Vancomycin [Vancocin] 125 mg PO QID #14 capsule Diet: Low Sodium (Eat a low-salt diet which will help prevent fluid retention.) Activity Restrictions: Activity as Tolerated Shower Restrictions: No Driving Restrictions: Yes (NO DRIVING IS ALLOWED, due to your "shakiness".) Assistance Devices: Cane Weight Bearing: Full Weight Instruction Topics: Rifaximin tablets, Spironolactone tablets Health Concerns: You were admitted with severe weakness, diarrhea from a C. diff. infection of the bowel, a dangerously low potassium level (which was very difficult to replace into a safe range), and the history of your alcohol abuse that has severely affected your liver function. You are being discharged home to take 3 more days of Vancomycin and 10 more days of Rifaximin for the C. diff. bowel infection. Please wipe down surfaces with Clorox Handy Wipes, so other people do not catch this. Eat probiotic foods (like yogurt, kimchi, pickles or kefir drink) to restore good gut bacteria. You are getting a new prescription for Spironolactone, which will slowly decrease the fluid in the abdomen. You are getting a daily prescription for Thiamine and Multi-vitamin (called ) to rebuild your health after alcohol abuse affected your liver. Resume your other pre-hospital medicine Losartan, but at 1/2 the dose. Resume your other medications as previously prescribed. A prescription for Trazodone for sleep, and Ativan for anxiety were prescribed at your request. Because you have a high ammonia level in the bloodstream, from poor liver function, IT IS ILLEGAL FOR YOU TO DRIVE A VEHICLE. IF YOU GET STOPPED BY POLICE AND FOUND DRIVING, YOU WILL BE ARRESTED. There is a new prescription ordered for a medication called Lactulose, to decrease that high ammonia level. It will cause slight diarrhea, but decrease the muscle shakes. Your new Primary Care Provider in [place] needs to give you a release to resume driving. Your medicines were refilled and new prescriptions were all sent electronically to [facility] in [place]. Plan of Treatment: As above. Care Goals: Improvement in symptoms and stabilization are the goals. Assessment: The patient understands. Additional Instructions or Follow Up instructions: If you have new or worsening symptoms, call your PCP for advice or come to the ER. No Smoking: If you smoke, Please STOP! Call for help. Follow-up with: OMAR BRYAN MD [Primary Care Provider] -
--- NOTE | 2020-04-22 12:56 | DISCHARGE SUMMARY ---
Discharge Summary Admit Date: 04/17/20 Discharge Date: 04/22/20 Discharging Provider: Dr Tiffanie Nina Primary Care Provider: Dr April Rubin Code Status: Attempt Resuscitation Condition at Discharge: Fair Discharge Disposition: 01 Home, Self Care - HPI History of Present Illness: This is a 39-year-old black male with a history of hypertension and alcoholic liver disease. The patient restarted alcohol abuse when he was going through a divorce and also has been released from the [employer] and [place]. For the last week he stopped using any alcohol and thought he was going through withdrawal, reports that he had shakes, nausea vomiting and diarrhea. He only took his blood pressure medications intermittently and could not keep food down and only drank water. He came to the ER complaining of weakness so bad that he could not lift his cell phone. In the ER he had a blood pressure of 156/100, hypokalemia with potassium of 1.8, elevated liver function tests, bilirubin 8.9, INR 2.4, low platelet count of 89K, elevated ammonia level of 114, all consistent with liver failure. EKG showed a prolonged QTc of 562 msec. He was not tachycardic but had nystagmus and asterixis, and a very distended abdomen with ascites. He is being admitted for management of severe hypokalemia, dehydration, diarrhea, possible recent alcohol withdrawal, alcoholic liver failure and management of ascites. - HOSPITAL COURSE Hospital Course: (1) C. difficile colitis He was having 10 liquid bowel movements a day. CT on admission was consistent with colitis. The stool specimen was pos for CV. diff. He was put on oral Vancomycin. His white count normalized and he was afebrile, but he continued to have large amounts of diarrhea, thus Rifaximin was added. Finally, during his final 2 days, the stools bulked up. He was discharged to finish a course of oral Vanco and Rifaximin and a probiotic was ordered. (2) Hypokalemia He required many bags of Potassium iv and escalated doses of po Potassium. The concern was that he may have possible Arelis's syndrome as well as persistent hypokalemia due to GI losses. Renin and aldosterone were checked and these results are pending. He was discharged on oral potassium supplementation. (3) Liver cirrhosis, alcoholic He has evidence of cirrhosis with liver failure given his coagulopathy, thrombocytopenia, ascites, icterus, elevated ammonia and asterixis. His meld score is 22. He will need outpatient follow-up with Gastroenterology. A viral hepatitis panel was done and all were neg. We discussed the importance of alcohol cessation. He was ordered to start Lactulose after discharge, given his elevated ammonia levels of 90-148, and continued intermittent asterixis. He was advised not to drive a vehicle. (4) Ascites due to alcoholic cirrhosis Imaging on admission showed moderate amount of ascites. Given his abdominal distention, a paracentesis was considered, given he does get some dyspnea ass ociated with the distention. However, his INR was 2.4, despite vitamin K given at admission, and before the day of discharge, therefore no paracentesis was done. We started him on Spironolactone 25 mg daily during this admission, and at discharge the dose was 50 mg daily. (5) HTN (hypertension) His blood pressure was occasionally elevated with systolics of 150-160 and diastolics 90-110. We used his home Losartan dose and added Spironolactone. (6) Alcoholism He did not go through withdrawal during this hospitalization. He got Banana Bag iv fluids for 2 days then transitioned to oral thiamine and multivitamin. We discussed the importance of alcohol cessation given his significant liver disease. (7) Prolonged QT interval This was secondary to marked hypokalemia and resolved over 3 days. On telemetry, there were no dysrhythmias. (8) Anemia Hemoglobin at admission was 11, this decreased to 10 after hydration and remained at 10 throughout hospitalization. - ALLERGIES Allergies/Adverse Reactions: Allergies Allergy/AdvReac Type Severity Reaction Status Date / Time No Known Drug Allergies Allergy Verified 04/17/20 10:00 - MEDICATIONS Home Medications: Ambulatory Orders Medication Instructions Recorded Confirmed RX: Naltrexone HCl 50 mg PO DAILY 12/25/19 04/17/20 RX: Melatonin 9 mg PO QPM 02/15/20 04/17/20 RX: FLUoxetine [PROzac] 40 mg PO DAILY 04/17/20 04/17/20 RX: Losartan [Cozaar] 25 mg PO DAILY 04/17/20 04/17/20 RX: LORazepam [Ativan] 0.5 mg PO DAILY PRN #6 tablet 04/22/20 RX: Lactulose 10 gm PO BID #60 bottle 04/22/20 RX: Mdi: Albuterol 1 puffs INH QID PRN #1 inh 04/22/20 RX: Potassium Chloride [K-Dur] 20 meq PO TIDWM #90 tablet 04/22/20 RX: Vitamin [Trinatal Rx 1 tab PO DAILY #30 tablet 04/22/20 1] RX: Spironolactone [Aldactone] 50 mg PO DAILY #30 tablet 04/22/20 RX: Thiamine [Vitamin B-1] 100 mg PO DAILY #30 tablet 04/22/20 RX: Vancomycin [Vancocin] 125 mg PO QID #14 capsule 04/22/20 RX: rifAXIMin [Xifaxan] 550 mg PO BID #18 tablet 04/22/20 RX: traZODone [Desyrel] 50 mg PO QPM PRN #6 tablet 04/22/20 - PHYSICAL EXAM AT DISCHARGE General Appearance: positive: No acute distress, Alert Eyes Bilateral: positive: Normal inspection, Other (scleral icterus present) ENT: positive: ENT inspection nml, No signs of dehydration Neck: positive: Nml inspection, No JVD Respiratory: positive: No respiratory distress Cardiovascular: positive: Regular rate & rhythm Abdomen: positive: Other (Distended with a fluid wave but not tense, normal bowel sounds, non-tender.) Extremities: positive: No pedal edema Neurologic/Psychiatric: positive: Oriented x3, Other (Intermittent asterixis of his upper extremities. No nystagmus. Unsteady with gait, using a walker.) - LABS Result Diagrams: 04/22/20 05:40 04/22/20 05:40 - FOLLOW UP Follow Up: [place] to the ER if he had worsening of his ascites, before leaving [facility] in 4 days. He is planning to move to [place] permanently, is traveling by car, accompanied by his parents, on 04/26/2020. He knows to establish with a PCP in [place]. - TIME SPENT Time Spent in Discharge (Minutes): 55
[2020-04-23] MEDS ORDERED: LOSARTAN 50 MG TABLET PO SCH (09:00)
[2020-04-23] MEDS ORDERED: SPIRONOLACTONE 25 MG TABLET PO SCH (09:00)
== END 2020-04-22 13:40 | disposition home or self-care (01) | DRG 373 ==
LOC: ED 09:52 → MS2 12:22 → ICU 04-19 09:04 → MS2 04-20 16:12
PROVIDERS: ADMIT Internal Medicine; ATTEND Internal Medicine
PROC: 02HV33Z Insertion of Infusion Device into Superior Vena Cava, Percutaneous Approach (ICD-10-PCS; principal; 2020-04-19)
DX: A04.72 Enterocolitis due to Clostridium difficile, not specified as recurrent (principal); E87.6 Hypokalemia; K70.31 Alcoholic cirrhosis of liver with ascites; F10.20 Alcohol dependence, uncomplicated; K70.40 Alcoholic hepatic failure without coma; I10 Essential (primary) hypertension; D64.9 Anemia, unspecified; T46.5X6A Underdosing of other antihypertensive drugs, initial encounter; Z91.138 Patient's unintentional underdosing of medication regimen for other reason; E86.0 Dehydration; F32.9 Major depressive disorder, single episode, unspecified; I25.10 Atherosclerotic heart disease of native coronary artery without angina pectoris; F41.9 Anxiety disorder, unspecified; Y92.138 Other place on military base as the place of occurrence of the external cause; Z79.899 Other long term (current) drug therapy; Z63.79 Other stressful life events affecting family and household; Z63.5 Disruption of family by separation and divorce
CPT/HCPCS: 36415; 71045; 74177; 80048; 80053; 80074; 80076; 80306; 80320; 81001; 81003; 82088; 82140; 82272; 82436; 82570; 82803; 83690; 83735; 84100; 84132; 84133; 84244; 84300; 85025; 85610; 87045; 87046; 87086; 87150; 87493; 93005; 94640; 97116; 97161; 99285; A9270; J3411; J8499; Q9967

== ENCOUNTER 2020-04-24 17:13 | Emergency (ER) | payer OTHER ==
--- NOTE | 2020-04-24 18:08 | ED Physician Documentation ---
PD HPI ABD PAIN - Stated complaint Stated Complaint: SHAKY,JAUNDICE - Chief complaint Chief Complaint: Abd Pain - History obtained from History obtained from: Patient (He was seen here recently and admitted for alcoholic cirrhosis, hepatic encephalopathy, C. difficile colitis and severe hypokalemia. He was discharged on multiple new medications including lactulose, potassium supplementation, Aldactone, vancomycin, rifaximin. He feels like since he was discharged 2 days ago he is more shaky, more jaundiced and would like to have his abdomen tapped because of increased ascites. He denies shortness of breath. He has been compliant with his medications. He has not been drinking alcohol.) Review of Systems Constitutional: reports: Reviewed and negative Cardiac: reports: Reviewed and negative Respiratory: reports: Reviewed and negative PD PAST MEDICAL HISTORY - Past Medical History Cardiovascular: Hypertension GI: Cirrhosis Psych: Depression - Past Surgical History Past Surgical History: No - Present Medications Home Medications: Ambulatory Orders Medication Instructions Recorded Confirmed Naltrexone HCl 50 mg PO DAILY 12/25/19 04/17/20 Melatonin 9 mg PO QPM 02/15/20 04/17/20 FLUoxetine [PROzac] 40 mg PO DAILY 04/17/20 04/17/20 Losartan [Cozaar] 25 mg PO DAILY 04/17/20 04/17/20 LORazepam [Ativan] 0.5 mg PO DAILY PRN #6 tablet 04/22/20 Lactulose 10 gm PO BID #60 bottle 04/22/20 Mdi: Albuterol 1 puffs INH QID PRN #1 inh 04/22/20 Potassium Chloride [K-Dur] 20 meq PO TIDWM #90 tablet 04/22/20 Vitamin [Trinatal Rx 1] 1 tab PO DAILY #30 tablet 04/22/20 Spironolactone [Aldactone] 50 mg PO DAILY #30 tablet 04/22/20 Thiamine [Vitamin B-1] 100 mg PO DAILY #30 tablet 04/22/20 Vancomycin [Vancocin] 125 mg PO QID #14 capsule 04/22/20 rifAXIMin [Xifaxan] 550 mg PO BID #18 tablet 04/22/20 traZODone [Desyrel] 50 mg PO QPM PRN #6 tablet 04/22/20 Furosemide [Lasix] 20 mg PO DAILY #30 tablet 04/24/20 Spironolactone 100 mg PO BID #60 tablet 04/24/20 - Allergies Allergies/Adverse Reactions: Allergies Allergy/AdvReac Type Severity Reaction Status Date / Time No Known Drug Allergies Allergy Verified 04/17/20 10:00 - Social History Does the pt smoke?: Yes Smoking Status: Current every day smoker Does the pt drink ETOH?: Yes Does the pt have substance abuse?: No - Immunizations Immunizations are current?: Yes - POLST Patient has POLST: No PD ED PE NORMAL - Vitals Vital signs reviewed: Yes - General General: Alert and oriented X 3, No acute distress - Cardiac Cardiac: RRR, No murmur - Respiratory Respiratory: No respiratory distress, Clear bilaterally - Abdomen Abdomen: Soft, Non tender, Other (He has ascites but it is not quite tense. Mild pedal edema) - Derm Derm: Other (Jaundiced) - Neuro Neuro: Alert and oriented X 3, Normal speech Results - Vitals Vitals: Vital Signs - 24 hr 04/24/20 17:19 Temperature 37.5 C Heart Rate 95 Respiratory 18 Rate Blood Pressure 127/76 O2 Saturation 96 Oxygen O2 Source Room air - Labs Labs: Laboratory Tests 04/24/20 04/24/20 04/24/20 18:00 18:00 18:00 WBC 11.6 H RBC 3.06 L Hgb 10.1 L Hct 30.7 L MCV 100.3 H MCH 33.0 H MCHC 32.9 RDW 17.7 H Plt Count 144 MPV 9.0 Neut # (Auto) Not Reportable Lymph # (Auto) Not Reportable Stark # (Auto) Not Reportable Eos # (Auto) Not Reportable Baso # (Auto) Not Reportable Absolute Nucleated RBC Not Reportable Total Counted 100 Band Neuts % (Manual) 0 Abnorm Lymph % (Manual) 0 Nucleated RBC % Not Reportable Neutrophils # (Manual) 8.1 H Lymphocytes # (Manual) 1.7 Monocytes # (Manual) 1.5 H Eosinophils # (Manual) 0.1 Basophils # (Manual) 0.1 Differential Comment MANUAL DIFFERENTIAL Manual Slide Review Indicated WBC Morphology NORMAL APPEARANCE Platelet Estimate NORMAL (130-450,000) Platelet Morphology NORMAL APPEARANCE RBC Morph Micro Appear 1+ MACROCYTOSIS PT 22.8 H INR 2.1 H Sodium 137 Potassium 3.9 Chloride 99 L Carbon Dioxide 31 Anion Gap 7.0 BUN 6 Creatinine 0.6 Estimated GFR (MDRD) 150 Glucose 102 H Calcium 8.4 L Total Bilirubin 4.9 H AST 88 H ALT 50 Alkaline Phosphatase 160 H Ammonia Total Protein 6.3 L Albumin 2.3 L Globulin 4.0 Albumin/Globulin Ratio 0.6 L Lipase 96 H Ethyl Alcohol < 5.0 04/24/20 18:15 WBC RBC Hgb Hct MCV MCH MCHC RDW Plt Count MPV Neut # (Auto) Lymph # (Auto) Stark # (Auto) Eos # (Auto) Baso # (Auto) Absolute Nucleated RBC Total Counted Band Neuts % (Manual) Abnorm Lymph % (Manual) Nucleated RBC % Neutrophils # (Manual) Lymphocytes # (Manual) Monocytes # (Manual) Eosinophils # (Manual) Basophils # (Manual) Differential Comment Manual Slide Review WBC Morphology Platelet Estimate Platelet Morphology RBC Morph Micro Appear PT INR Sodium Potassium Chloride Carbon Dioxide Anion Gap BUN Creatinine Estimated GFR (MDRD) Glucose Calcium Total Bilirubin AST ALT Alkaline Phosphatase Ammonia 44.1 H Total Protein Albumin Globulin Albumin/Globulin Ratio Lipase Ethyl Alcohol PD MEDICAL DECISION MAKING - ED course ED course: 39-year-old gentleman with known alcoholic cirrhosis presents with what he thinks is worsening jaundice but his bilirubin is actually improved from prior and ascites but not tense and not affecting his breathing. His potassium is now normal, so we will increase his Aldactone and add Lasix. Departure - Departure Disposition: 01 Home, Self Care Clinical Impression: Alcoholic liver disease Ascites Qualifiers: Ascites type: due to alcoholic cirrhosis Qualified Code(s): K70.31 - Alcoholic cirrhosis of liver with ascites Condition: Good Record reviewed to determine appropriate education?: Yes Instructions: Cirrhosis Liver Dc Prescriptions: Furosemide [Lasix] 20 mg PO DAILY #30 tablet Spironolactone 100 mg PO BID #60 tablet Comments: You were seen today for continued symptoms of jaundice and abdominal distention in the setting of known liver disease from prior alcoholism, your bilirubin is actually better today than it was on discharge. Your potassium today was in the normal range at 3.9. It does not look like you urgently need a tap of your abdomen, and now that your potassium is better we can start a second diuretic to get the extra fluid off of you. I am increasing your Spironolactone to 100 mg twice a day and adding furosemide. You should continue the potassium supplementation. You need follow-up labs sometime this week with your primary care physician. Return anytime if worsening. Other than the medication changes discussed above, continue all the current medications you were discharged with from the hospital.
[2020-04-24 18:10] LABS: BASOPHILS % (AUTO) 0.5 %; EOSINOPHILS % (AUTO) 2.1 %; HGB - HEMOGLOBIN 10.1 g/dL (14.0-18.0); LYMPHOCYTES % (AUTO) 16.2 %; MEAN CORPUSCULAR HGB CONC 32.9 g/dL (32.0-36.0); MEAN CORPUSCULAR VOLUME 100.3 fL (80.0-94.0); MONOCYTES % (AUTO) 18.8 %; NEUTROPHILS % (AUTO) 61.4 %; PLT - PLATELET COUNT 144 10^3/uL (130-450); RED BLOOD COUNT 3.06 10^6/uL (4.70-6.10); RED CELL DISTRIBUTION WIDTH 17.7 % (12.0-15.0); WHITE BLOOD COUNT 11.6 x10^3/uL (4.8-10.8)
[2020-04-24 18:14] LABS: ABNORMAL LYMPHS % (MANUAL) 0 %; BAND NEUTROPHILS % (MANUAL) 0 %
[2020-04-24 18:15] LABS: INR 2.1 (0.8-1.2); PT - PROTHROMBIN TIME 22.8 secs (9.9-12.6)
[2020-04-24 18:23] LABS: ALBUMIN 2.3 g/dL (3.2-5.5); ALBUMIN/GLOBULIN RATIO 0.6 (1.0-2.2); ALKALINE PHOSPHATASE 160 IU/L (42-121); ALT ALANINE AMINOTRANSFERASE 50 IU/L (10-60); AST ASPARTATE AMINOTRANSFERASE 88 IU/L (10-42); BILIRUBIN,TOTAL 4.9 mg/dL (0.2-1.0); BUN - BLOOD UREA NITROGEN 6 mg/dL (6-20); CALCIUM 8.4 mg/dL (8.5-10.3); CARBON DIOXIDE - CO2 31 mmol/L (21-32); CHLORIDE 99 mmol/L (101-111); CREATININE 0.6 mg/dL (0.6-1.2); GLUCOSE 102 mg/dL (70-100); LIPASE 96 U/L (22-51); SODIUM 137 mmol/L (135-145); TOTAL PROTEIN 6.3 g/dL (6.7-8.2)
[2020-04-24 18:27] LABS: BASOPHILS # (MANUAL) 0.1 10^3/uL (0-0.1); BASOPHILS % (MANUAL) 1 %; DIFFERENTIAL COMMENT MANUAL DIFFERENTIAL; EOSINOPHILS # (MANUAL) 0.1 10^3/uL (0-0.7); LYMPHOCYTES # (MANUAL) 1.7 10^3/uL (1.5-3.5); LYMPHOCYTES % (MANUAL) 15 %; MONOCYTES # (MANUAL) 1.5 10^3/uL (0.0-1.0); PLATELET ESTIMATE, MANUAL NORMAL (130-450,000) (NORMAL); PLATELET MORPHOLOGY NORMAL APPEARANCE (NORMAL)
[2020-04-24] MEDS ORDERED: FUROSEMIDE 20 MG TABLET PO STA (18:45)
[2020-04-24] MEDS ORDERED: POTASSIUM CHLORIDE 20 MEQ TABLET PO STA (18:45)
[2020-04-24 19:07] VITALS: BP 132/76
== END 2020-04-24 19:07 | disposition home or self-care (01) ==
LOC: ED 17:13
DX: K70.31 Alcoholic cirrhosis of liver with ascites (principal); F10.20 Alcohol dependence, uncomplicated; I10 Essential (primary) hypertension; F17.200 Nicotine dependence, unspecified, uncomplicated
CPT/HCPCS: 36415; 80053; 80320; 82140; 83690; 85025; 85610; 99283; 99284